=== PATIENT | male | born 1960 | race Caucasian/White ===

== ENCOUNTER 2016-12-14 21:44 | Emergency (ER) | payer BC ==
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
[2016-12-14] MEDS ORDERED: DIPH/PERTUSS(ACELL)/TETANUS VAC/PF 0.5 ML SYR (>=10YO) IM ONE (22:32)
[2016-12-14] MEDS ORDERED: LIDOCAINE 4%/TETRACAINE 0.5%/EPI 0.18% 5 ML TOPICAL SOLN TOP ONE (22:32)
[2016-12-14] MEDS ORDERED: NICOTINE 14 MG/24 HR PATCH.TD24 TD ONE (23:46)
[2016-12-14] MEDS ORDERED: HYDROCODONE/ACETAMINOPHEN 5-325 MG 6 TAB/DSPK PO PRN (23:47)
[2016-12-15 03:02] VITALS: BP 122/74
== END 2016-12-15 02:48 | disposition home or self-care (01) ==
LOC: ER 21:44
PROC: 0HQ0XZZ Repair Scalp Skin, External Approach (ICD-10-PCS; principal; 2016-12-14)
DX: S01.01XA Laceration without foreign body of scalp, initial encounter (principal); F10.929 Alcohol use, unspecified with intoxication, unspecified; F17.200 Nicotine dependence, unspecified, uncomplicated; X58.XXXA Exposure to other specified factors, initial encounter; Z23 Encounter for immunization
CPT/HCPCS: 99284; 90471; 70450; 72125; 90715; 12002; J3490

== ENCOUNTER 2016-12-27 12:53 | Emergency (ER) | payer BC ==
[2016-12-27 13:17] VITALS: BP 132/81
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
== END 2016-12-27 14:10 | disposition home or self-care (01) ==
LOC: ER 12:53
DX: Z48.02 Encounter for removal of sutures (principal); R03.0 Elevated blood-pressure reading, without diagnosis of hypertension

== ENCOUNTER → 2017-04-24 | Outpatient (CLI) | payer BC ==
--- NOTE | 2017-04-24 10:20 | RADIOLOGY REPORT (SQ) ---
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 Images reviewed with lung, soft tissue and bone windows. Reconstructed coronal a nd sagittal MPR images reviewed. All images stored on PACS. CT scan of the abdomen and pelvis performed with intravenous and with oral contrastusing helical scan kathleen technique with dynamic intravenous contrast injection. Images reviewed with lung, soft tissue a nd bone windows. Reconstructed coronal and sagittal MPR images reviewed. Delayed images for evaluat ion of the urinary system also acquired and evaluated. All images stored on PACS. All CT scanners at this facility use dose modulation, iterative reconstruction, and/or weight based d osing when appropriate to reduce radiation dose to as low as reasonably achievable (ALARA). [facility]: Dose Right [facility]: CareDose [facility]: Dose Right [facility]: Teradose 4D [facility]: [employer] RADIATION DOSE: Up-to-date CT equipment and radiation dose reduction techniques were employed. CTDIv ol: 7.9 - 11.6 mGy. DLP: 1483 mGy-cm. . LIMITATIONS: None. FINDINGS: CHEST: LUNGS AND PLEURA: No opacities, nodules, masses. No pneumothorax. No effusions. Few small bulla or blebs at the right and left lung apices. HILAR AND MEDIASTINAL STRUCTURES: No identified masses or abnormal nodes. HEART AND VASCULAR STRUCTURES: No aneurysm or dissection. No central pulmonary emboli. No pericardi al effusion. HARDWARE: None. THYROID AND OTHER SOFT TISSUES: No masses. No adenopathy. BONES: No significant finding. OTHER: No other significant finding. ABDOMEN AND PELVIS: LIVER: The liver has a nodular contour from cirrhosis. In the caudate lobe liver, adjacent to the co nfluence of the middle and right hepatic veins, a hypodense nodule is present with an adjacent surgic al clip measuring 2.2 cm transverse by 1.4 cm AP. This is stable compared to 10/05/2016. There is portal hypertension with distal esophageal varices, similar compared to 10/05/2016. No ascit es. No splenomegaly. SPLEEN: Normal size. No focal lesions. PANCREAS: No masses. No significant calcifications. No adjacent inflammation or peripancreatic fluid collections. Pancreatic duct not dilated. GALLBLADDER: No identified stones by CT criteria. No inflammatory changes to suggest cholecystitis. ADRENAL GLANDS: No significant masses or asymmetry. RIGHT KIDNEY AND URETER: No solid masses. No significant calcification. No hydronephrosis or hydroure ter. LEFT KIDNEY AND URETER: No solid masses. No significant calcification. No hydronephrosis or hydrouret er. AORTA AND VESSELS: No aneurysm. No dissection. Renal arteries, SMA, celiac without stenosis. RETROPERITONEUM: No retroperitoneal adenopathy, hemorrhage or masses. BOWEL AND PERITONEAL CAVITY: No masses or inflammatory changes. No free fluid or peritoneal masses. APPENDIX: Normal. ABDOMINAL WALL: No masses. No hernias. BONES: No significant or acute findings. PELVIS: Normal size prostate with radiotherapy seeds present. No pelvic masses or adenopathy. IMPRESSION: No CT evidence of metastatic disease given history of liver tumor and prostate cancer Stable caudate lobe liver mass, portal hypertension without splenomegaly or ascites. TECHNICAL DOCUMENTATION: JOB ID: [id number] Quality ID # [id number]: Final reports with documentation of one or more dose reduction techniques (e.g., Au tomated exposure control, adjustment of the mA and/or kV according to patient size, use of iterative reconstruction technique) 2010 [employer]- All Rights Reserved
== END ==
LOC: RAD 07:14
PROVIDERS: ATTEND Internal Medicine
DX: C22.1 Intrahepatic bile duct carcinoma (principal)
CPT/HCPCS: 71260; 74177; 82565

== ENCOUNTER 2018-02-16 19:22 | Emergency (ER) | payer BC ==
--- NOTE | 2018-02-16 20:19 | RADIOLOGY REPORT (SQ) ---
EXAM DESCRIPTION: ANKLE RIGHT COMPLETE COMPLETED DATE/TIME: 02/16/2018 7:58 pm REASON FOR STUDY: Ankle pain s/p injury earlier COMPARISON: None. NUMBER OF VIEWS: Three views. TECHNIQUE: AP, lateral, and oblique radiographic images acquired of the right ankle. LIMITATIONS: None. FINDINGS: MINERALIZATION: Normal. BONES: There is a linear lucency at the lateral aspect of the talar dome. Calcific densities are see n at the tip of the lateral malleolus and medial malleolus. No evidence for dislocation. The ankle mortise is maintained. There is calcaneal enthesopathy. JOINTS: No effusion. 5 mm calcification at the posterior ankle joint. SOFT TISSUES: There is mild soft tissue swelling at the ankle. No radiopaque foreign body IMPRESSION: 1. Mild soft tissue swelling at the ankle. Linear lucency at the lateral aspect of the talar dome, probably representing a nondisplaced osteochondral fracture. 2. Calcific densities at the tips of the lateral and medial malleoli, suggestive of avulsion injuries of indeterminate age. Please correlate with point tenderness/clinical history. 3. 5 mm calcification at the posterior ankle joint, may represent an intra-articular loose body. TECHNICAL DOCUMENTATION: JOB ID: [id number] [place]-64 2010 [employer]- All Rights Reserved Reading location - IP/workstation name: [email or web address]
[2018-02-16] MEDS ORDERED: HYDROCODONE/ACETAMINOPHEN 5-325 MG (6 TAB/ER DISP) PO PRN (21:09)
--- NOTE | 2018-02-16 21:09 | ER Document Report ---
ED Extremity Problem, Lower - General Chief Complaint: Ankle Injury Stated Complaint: FOOT INJURY Time Seen by Provider: 02/16/18 20:54 Mode of Arrival: Ambulatory Information source: Patient TRAVEL OUTSIDE OF THE [place] IN LAST 30 DAYS: No - HPI Patient complains to provider of: Pain, Swelling Location: Ankle Occurred: This afternoon Where: Outdoors Onset/Duration: Gradual Quality of pain: Achy, Pressure Severity: Moderate Pain Level: 3 Recent injury: Possibly Notes: Patient is a 57-year-old male presenting to the emergency room complaining of right ankle pain and swelling, patient reports that he stepped off of a curb earlier in the day, he felt a "twinge", in his right ankle, but he returned home and clean his kitchen and did some other housework, only to have increasing pain and swelling in his right ankle, at one point feeling as though the ankle was "giving out", he denies any pain or injury elsewhere - Related Data Allergies/Adverse Reactions: No Known Allergies Allergy (Verified 12/27/16 13:14) Past Medical History - General Information source: Patient - Social History Smoking Status: Unknown if Ever Smoked Family History: Reviewed & Not Pertinent Renal/ Medical History: Denies: Hx Peritoneal Dialysis Review of Systems - Review of Systems Constitutional: No symptoms reported EENT: No symptoms reported Cardiovascular: No symptoms reported Respiratory: No symptoms reported Gastrointestinal: No symptoms reported Genitourinary: No symptoms reported Male Genitourinary: No symptoms reported Musculoskeletal: See HPI Skin: No symptoms reported Hematologic/Lymphatic: No symptoms reported Neurological/Psychological: No symptoms reported -: Yes All other systems reviewed and negative Physical Exam - Vital signs Vitals: Temp Pulse Resp BP Pulse Ox 99.6 F 85 16 127/75 H 94 02/16/18 19:34 02/16/18 19:34 02/16/18 19:34 02/16/18 19:34 02/16/18 19:34 - Notes Notes: - General General appearance: Appears well, Alert In distress: None - HEENT Head: Normocephalic, Atraumatic Eyes: Normal Conjunctiva: Normal Extraocular movements intact: Yes Eyelashes: Normal Pupils: PERRL - Respiratory Respiratory status: No respiratory distress - Cardiovascular Rhythm: Regular - Abdominal Inspection: Normal - Back Back: Normal - Extremities General upper extremity: Normal inspection General lower extremity: Erythema and swelling to the right ankle, tenderness to palpate over the medial malleolus and the lateral malleolus, pain with range of motion testing, distal sensation and motor is intact with 2+ DP pulses - Neurological Neuro grossly intact: Yes Orientation: AAOx4 [place] Coma Scale Eye Opening: Spontaneous Jocy Coma Scale Verbal: Oriented [place] Coma Scale Motor: Obeys Commands [place] Coma Scale Total: 15 - Psychological Associated symptoms: Normal affect, Normal mood - Skin Skin Temperature: Warm Skin Moisture: Dry Skin Color: Normal Course - Re-evaluation Re-evalutation: 02/16/18 21:27 Imaging findings consistent with nondisplaced talus bone fracture, as well as medial and lateral mid avulsion fractures, patient was informed of these findings, placed in a splint and provided with crutches, pain medication and instructions for follow-up with orthopedics, advised to ice and elevate, limit ambulation, return to the emergency room if symptoms worsen, patient acknowledges understanding and agreement with this plan - Vital Signs Vital signs: Temp Pulse Resp BP Pulse Ox 99.6 F 85 16 127/75 H 94 02/16/18 19:34 02/16/18 19:34 02/16/18 19:34 02/16/18 19:34 02/16/18 19:34 - Diagnostic Test Radiology reviewed: Image reviewed, Reports reviewed Procedures - Immobilization Right Posterior Ankle Time completed: 21:27 Pre-Proc Neuro Vasc Exam: Normal Immobilizer type: Posterior ankle Performed by: PCT Post-Proc Neuro Vasc Exam: Normal Alignment checked and good: Yes Discharge - Discharge Clinical Impression: Avulsion fracture of ankle Qualifiers: Encounter type: initial encounter Fracture type: closed Laterality: right Qualified Code(s): S82.891A - Other fracture of right lower leg, initial encounter for closed fracture Fracture, tarsal bone, talus Qualifiers: Encounter type: initial encounter Fracture type: closed Talus location: dome of talus Fracture alignment: nondisplaced Laterality: right Qualified Code(s): S92.144A - Nondisplaced dome fracture of right talus, initial encounter for closed fracture Condition: Stable Disposition: HOME, SELF-CARE Instructions: Use of Crutches ([facility]), Ice & Elevation ([facility]), Oral Narcotic Medication ([facility]), Soft Ankle Splint ([facility]) Additional Instructions: Follow up with your primary care provider and an orthopedic surgeon in one to 2 days. Return to the emergency room immediately if symptoms worsen or any additional concerns. Ice and elevate the affected extremity. Limit weightbearing. Prescriptions: Hydrocodone/Acetaminophen [Hydrocodon-Acetaminophen 5-325] 1 each PO Q6 #10 tablet Forms: Return to Work Referrals: MARQUEZ SCHMIDT MD [Primary Care Provider] - Follow up as needed SERGIO MONK MD [ACTIVE STAFF] - Follow up as needed
[2018-02-16 22:25] VITALS: BP 137/91
== END 2018-02-16 22:00 | disposition home or self-care (01) ==
LOC: ER 19:22
DX: S82.891A Other fracture of right lower leg, initial encounter for closed fracture (principal); X50.9XXA Other and unspecified overexertion or strenuous movements or postures, initial encounter
CPT/HCPCS: 99283

== ENCOUNTER → 2018-05-08 | Outpatient (CLI) | payer BC ==
--- NOTE | 2018-05-08 15:53 | RADIOLOGY REPORT (SQ) ---
EXAM DESCRIPTION: CT CHEST WITH COMPLETED DATE/TIME: 05/08/2018 3:38 pm REASON FOR STUDY: C22.0 LIVER CELL CARCINOMA C22.0 LIVER CELL CARCINOMA COMPARISON: 04/24/2017 TECHNIQUE: CT scan of the chest performed using helical scanning technique with dynamic intravenous contrast injection. Images reviewed with lung, soft tissue and bone windows. Reconstructed coronal and sagittal MPR and MIP images reviewed. All images stored on PACS. All CT scanners at this facility use dose modulation, iterative reconstruction, and/or weight based d osing when appropriate to reduce radiation dose to as low as reasonably achievable (ALARA). [facility]: Dose Right [facility]: CareDose [facility]: Dose Right [facility]: Teradose 4D [facility]: [employer] CONTRAST TYPE AND DOSE: See separate report of the same date. RENAL FUNCTION: See separate report of the same date. RADIATION DOSE: . LIMITATIONS: None. FINDINGS: LUNGS AND PLEURA: No opacities, nodules, masses. No pneumothorax. No effusions. HILAR AND MEDIASTINAL STRUCTURES: No identified masses or abnormal nodes. HEART AND VASCULAR STRUCTURES: No aneurysm or dissection. No central pulmonary emboli. No pericardi al effusion. HARDWARE: None in the chest. UPPER ABDOMEN: See separate report of the CT of the abdomen. THYROID AND OTHER SOFT TISSUES: No masses. No adenopathy. BONES: No significant finding. OTHER: No other significant finding. IMPRESSION: No evidence of metastatic disease. TECHNICAL DOCUMENTATION: JOB ID: [id number] Quality ID # [id number]: Final reports with documentation of one or more dose reduction techniques (e.g., Au tomated exposure control, adjustment of the mA and/or kV according to patient size, use of iterative reconstruction technique) 2010 [employer]- All Rights Reserved Reading location - IP/workstation name: [email or web address]
--- NOTE | 2018-05-08 16:07 | RADIOLOGY REPORT (SQ) ---
EXAM DESCRIPTION: CT ABD/PELVIS WITH IV ORAL COMPLETED DATE/TIME: 05/08/2018 3:38 pm REASON FOR STUDY: C22.0 LIVER CELL CARCINOMA C22.0 LIVER CELL CARCINOMA COMPARISON: 04/24/2017 TECHNIQUE: CT scan of the abdomen and pelvis performed using helical scanning technique with dynamic intravenous contrast injection. No oral contrast. Images reviewed with lung, soft tissue, and bone windows. Reconstructed coronal and sagittal MPR images reviewed. Delayed images for evaluation of the urinary system also acquired. All images stored on PACS. All CT scanners at this facility use dose modulation, iterative reconstruction, and/or weight based d osing when appropriate to reduce radiation dose to as low as reasonably achievable (ALARA). [facility]: Dose Right [facility]: CareDose [facility]: Dose Right [facility]: Teradose 4D [facility]: [employer] CONTRAST TYPE AND DOSE: contrast/concentration: Isovue 350.00 mg/ml; Total Contrast Delivered: 87.0 ml; Total Saline Delivered: 72.0 ml RENAL FUNCTION: Creatinine 0.6 RADIATION DOSE: CT Rad equipment meets quality standard of care and radiation dose reduction techniq ues were employed. CTDIvol: 9.3 - 13.6 mGy. DLP: 1767 mGy-cm.. LIMITATIONS: None. FINDINGS: LOWER CHEST: See separate report of the CT of the chest. LIVER: Sub capsular nodularity. Stable 1.5 cm lesion near the gallbladder fossa. SPLEEN: Normal size. No focal lesions. PANCREAS: No masses. No significant calcifications. No adjacent inflammation or peripancreatic fluid collections. Pancreatic duct not dilated. GALLBLADDER: No identified stones by CT criteria. No inflammatory changes to suggest cholecystitis. ADRENAL GLANDS: No significant masses or asymmetry. RIGHT KIDNEY AND URETER: No solid masses. No significant calcifications. No hydronephrosis or hyd roureter. LEFT KIDNEY AND URETER: No solid masses. No significant calcifications. No hydronephrosis or hydr oureter. AORTA AND VESSELS: No aneurysm. Distal esophageal varices. RETROPERITONEUM: Adenopathy, the largest 3.0 x 2.1 cm. BOWEL AND PERITONEAL CAVITY: No masses or inflammatory changes. No free fluid or peritoneal masses. APPENDIX: Normal. PELVIS: Enlarged left pelvic wall nodes, the largest conglomerate 1.5 x 3 cm. Radiation seed markers in the pelvis. ABDOMINAL WALL: No masses. No hernias. BONES: No acute findings. OTHER: No other significant finding. IMPRESSION: New retroperitoneal and left pelvic adenopathy concerning for metastatic disease or lymp coco. TECHNICAL DOCUMENTATION: JOB ID: [id number] Quality ID # [id number]: Final reports with documentation of one or more dose reduction techniques (e.g., Au tomated exposure control, adjustment of the mA and/or kV according to patient size, use of iterative reconstruction technique) 2010 [employer]- All Rights Reserved Reading location - IP/workstation name: [email or web address] [id number]
== END ==
LOC: RAD 15:28
PROVIDERS: ATTEND Internal Medicine
DX: C22.0 Liver cell carcinoma (principal); R59.9 Enlarged lymph nodes, unspecified
CPT/HCPCS: 71260; 74177; 82565

== ENCOUNTER → 2018-05-25 | Outpatient (CLI) | payer BC ==
--- NOTE | 2018-05-26 08:27 | RADIOLOGY REPORT (SQ) ---
EXAM DESCRIPTION: PET CT SKULL/THIGH COMPLETED DATE/TIME: 05/25/2018 8:08 pm REASON FOR STUDY: LIVER CELL CARCINOMA C22.0 LIVER CELL CARCINOMA COMPARISON: CT scans dated 05/08/2018, 04/24/2017, and 10/05/2016. RADIONUCLIDE AND DOSE: 10 mCi F18 FDG The route of agent administration: Intravenous FASTING BLOOD SUGAR: 84 mg/dl CONTRAST TYPE AND DOSE: No CT contrast given. TECHNIQUE: Blood glucose level was verified. Above dose of FDG was injected intravenously. 2-D seg mented attenuation correction images were obtained from the base of the skull to the midthighs. Nonc ontrast CT images were obtained for attenuation correction and fusion with emission images. CT image s were performed without oral or intravenous contrast and are not sensitive for parenchymal lesions. A series of overlapping emission PET images were obtained. Images reviewed and manipulated at [facility] work station by the radiologist. Images stored on PACS. LIMITATIONS: None. FINDINGS: HEAD AND NECK: No areas of abnormal metabolic activity in the soft tissues of the head and neck. CHEST: No areas of abnormal metabolic activity in the chest. ABDOMEN AND PELVIS: There are several enlarged retroperitoneal lymph nodes with increased activity as follows: Right retrocrural lymph node (image 128) measuring 1.1 x 2.6 cm. Mean SUV 2.96. Retrocaval lymph node (image 155) measuring 1.8 cm. Mean SUV 10.67. Left periaortic lymph node (image 158) measuring 1.8 cm. Mean SUV 3.84. Retrocaval lymph node (image 161) measuring 0.8 x 2.1 cm. Mean SUV 6.79. Lymph node on the left side of the aortic bifurcation (image 176) measuring 1.9 cm. Mean SUV 5.53. Lymph node near the left common iliac artery (image 184) measuring 1.6 x 2.0 cm. Mean SUV 9.22. Lymph node posterior to the left common iliac artery (image 193) measuring 1.8 cm. Mean SUV 7.0. Lymph node along the left iliac chain (image 199) measuring 1.9 cm. Mean SUV 6.67. Lymph node along the left pelvic sidewall (image 211) measuring 1.4 cm. Mean SUV 7.58. Small nodule posterior to the prostate, possibly in the seminal vesicles, measuring 9 mm (image 227). Mean SUV 6.41. Expected physiologic activity is present in the genitourinary system and bowel. PROXIMAL LOWER EXTREMITIES: No areas of abnormal metabolic activity in the soft tissues of the lower extremities. BONES: Activity on the right side of the C4 vertebral body adjacent to the vertebral artery foramen w ith mean SUV 7.63. Activity in the right iliac bone adjacent to the sacroiliac joint with mean SUV [address] FINDINGS: No additional significant findings on the noncontrast CT images. OTHER: No other significant findings. Background blood pool activity mean SUV 1.27. Background live r activity mean SUV 1.87. . IMPRESSION: 1. EXTENSIVE ADENOPATHY IN THE ABDOMEN AND PELVIS CONSISTENT WITH METASTASES DETAILED ABOVE. 2. SMALL NODULE POSTERIOR TO THE PROSTATE, POSSIBLY IN THE SEMINAL VESICLE. FOCAL INCREASED ACTIVITY . THIS COULD BE DUE TO MALIGNANCY VERSUS INFLAMMATION. 3. ABNORMAL ACTIVITY IN THE CERVICAL SPINE AND RIGHT ILIAC BONE CONCERNING FOR METASTASES. TECHNICAL DOCUMENTATION: JOB ID: [id number] [employer]- All Rights Reserved Reading location - IP/workstation name: [facility]
== END ==
LOC: RAD 15:09
PROVIDERS: ATTEND Internal Medicine Hematology & Oncology
DX: C22.0 Liver cell carcinoma (principal)
CPT/HCPCS: 78815; A9552

== ENCOUNTER 2018-06-06 08:51 | Day surgery (SDC) | payer BC ==
[2018-06-06 09:41] LABS: HEMATOCRIT 43.6 % (37.9-51.0); HEMOGLOBIN 15.2 g/dL (13.5-17.0); MEAN CORPUSCULAR HEMOGLOBIN 33.5 pg (27.0-33.4); MEAN CORPUSCULAR HGB CONC 34.9 g/dL (32.0-36.0); MEAN CORPUSCULAR VOLUME 96 fl (80-97); PLATELET COUNT 125 10^3/uL (150-450); RED BLOOD COUNT 4.54 10^6/uL (4.35-5.55); WHITE BLOOD COUNT 3.6 10^3/uL (4.0-10.5)
[2018-06-06 10:00] LABS: BLOOD UREA NITROGEN 11 mg/dL (7-20)
[2018-06-06 10:02] LABS: INTERNATIONAL RATION (INR) 0.92; PROTHROMBIN TIME 12.8 SEC (11.4-15.4)
[2018-06-06 10:03] LABS: PARTIAL THROMBOPLASTIN TIME 29.6 SEC (23.5-35.8)
[2018-06-06] MEDS ORDERED: MIDAZOLAM 2 MG/2 ML INJ ONE (10:56)
[2018-06-06] MEDS ORDERED: FENTANYL CITRATE INJ/PF 100 MCG/2 ML AMPUL ONE (10:57)
[2018-06-06] MEDS ORDERED: LIDOCAINE 1% INJ-PF (10 MG/ML) 30 ML SDV ONE (10:57)
--- NOTE | 2018-06-06 13:48 | RADIOLOGY REPORT (SQ) ---
EXAM DESCRIPTION: CT BIOPSY ABD/RETROPERIT MASS; CT NEEDLE PLACEMENT COMPLETED DATE/TIME: 06/06/2018 12:29 pm REASON FOR STUDY: MALIGNANT NEOPLASM OF PROSTATE, LIVER CELL CARCINOMA C61 MALIGNANT NEOPLASM OF [place] C22.0 LIVER CELL CARCINOMA COMPARISON: CT chest abdomen pelvis 05/08/2018 PET-CT 05/25/2018 TECHNIQUE: CT guided biopsy of the left retroperitoneal lymph node performed with conscious sedation . CT Fluoroscopy Time: 16.[address] scanners at this facility use dose modulation, iterative reconstruction, and/or weight based d osing when appropriate to reduce radiation dose to as low as reasonably achievable (ALARA). [facility]: Dose Right [facility]: CareDose [facility]: Dose Right [facility]: Teradose 4D [facility]: [employer] RADIATION DOSE: mGy. FINDINGS: After obtaining informed consent and explaining the risks and benefits of conscious sedati on,the patient agreed to the procedure. Prior to the procedure, a time out was performed to verify th e patient's identity and planned procedure. IV sedation was administered and physician direction by the registered nurse using 2 milligrams of Ve rsed and 150 micrograms of fentanyl, for conscious sedation. Physiologic monitoring was provided befo re, during, and after sedation. The total sedation time was 1 hour. Documentation face to face time, the performing proceduralist, spent monitoring the patient: [address] scanning was performed to localize the percutaneous site for the biopsy approach. After sterile skin prep and local lidocaine for skin and deep tissue anesthesia, a coaxial 18 gauge b iopsy needle was used to obtain multiple cores of tissue. The biopsy tissue was submitted to the lab in formalin. There were no immediate complications. Pathology is pending at the time of dictation. IMPRESSION: CT GUIDED BIOPSY OF THE LEFT RETROPERITONEAL PARA-AORTIC LYMPH NODE PERFORMED WITHOUT IM MEDIATE COMPLICATION. PATHOLOGY PENDING. COMMENT: Quality ID 145: Final reports for procedures using fluoroscopy that document radiation exp osure indices, or exposure time and number of fluorographic images (if radiation exposure indices are not available) Patient medication list reviewed: Yes- Quality ID# [id number]:Eligible professional attests to documenting i n the medical record they obtained, updated, or reviewed the patient's current medications.. TECHNICAL DOCUMENTATION: JOB ID: [id number] Quality ID# 436: Final reports with documentation of one or more dose reduction techniques (e.g., Aut omated exposure control, adjustment of the mA and/or kV according to patient size, use of iterative r econstruction technique) 2010 [employer]- All Rights Reserved Reading location - IP/workstation name: [email or web address]
--- NOTE | 2018-06-06 13:48 | RADIOLOGY REPORT (SQ) ---
EXAM DESCRIPTION: CT BIOPSY ABD/RETROPERIT MASS; CT NEEDLE PLACEMENT COMPLETED DATE/TIME: 06/06/2018 12:29 pm REASON FOR STUDY: MALIGNANT NEOPLASM OF PROSTATE, LIVER CELL CARCINOMA C61 MALIGNANT NEOPLASM OF [place] C22.0 LIVER CELL CARCINOMA COMPARISON: CT chest abdomen pelvis 05/08/2018 PET-CT 05/25/2018 TECHNIQUE: CT guided biopsy of the left retroperitoneal lymph node performed with conscious sedation . CT Fluoroscopy Time: 16.[address] scanners at this facility use dose modulation, iterative reconstruction, and/or weight based d osing when appropriate to reduce radiation dose to as low as reasonably achievable (ALARA). [facility]: Dose Right [facility]: CareDose [facility]: Dose Right [facility]: Teradose 4D [facility]: [employer] RADIATION DOSE: mGy. FINDINGS: After obtaining informed consent and explaining the risks and benefits of conscious sedati on,the patient agreed to the procedure. Prior to the procedure, a time out was performed to verify th e patient's identity and planned procedure. IV sedation was administered and physician direction by the registered nurse using 2 milligrams of Ve rsed and 150 micrograms of fentanyl, for conscious sedation. Physiologic monitoring was provided befo re, during, and after sedation. The total sedation time was 1 hour. Documentation face to face time, the performing proceduralist, spent monitoring the patient: [address] scanning was performed to localize the percutaneous site for the biopsy approach. After sterile skin prep and local lidocaine for skin and deep tissue anesthesia, a coaxial 18 gauge b iopsy needle was used to obtain multiple cores of tissue. The biopsy tissue was submitted to the lab in formalin. There were no immediate complications. Pathology is pending at the time of dictation. IMPRESSION: CT GUIDED BIOPSY OF THE LEFT RETROPERITONEAL PARA-AORTIC LYMPH NODE PERFORMED WITHOUT IM MEDIATE COMPLICATION. PATHOLOGY PENDING. COMMENT: Quality ID 145: Final reports for procedures using fluoroscopy that document radiation exp osure indices, or exposure time and number of fluorographic images (if radiation exposure indices are not available) Patient medication list reviewed: Yes- Quality ID# [id number]:Eligible professional attests to documenting i n the medical record they obtained, updated, or reviewed the patient's current medications.. TECHNICAL DOCUMENTATION: JOB ID: [id number] Quality ID# 436: Final reports with documentation of one or more dose reduction techniques (e.g., Aut omated exposure control, adjustment of the mA and/or kV according to patient size, use of iterative r econstruction technique) 2010 [email or web address]- All Rights Reserved Reading location - IP/workstation name: [facility]-[email or web address]
[2018-06-06 16:33] VITALS: BP 135/79
== END 2018-06-06 14:30 | disposition home or self-care (01) ==
LOC: RAD 08:51 → EDSTATUS 11:00 → RAD 14:30
PROVIDERS: ATTEND Internal Medicine
DX: C77.2 Secondary and unspecified malignant neoplasm of intra-abdominal lymph nodes (principal); C61 Malignant neoplasm of prostate; C22.0 Liver cell carcinoma
CPT/HCPCS: 36415; 84520; 82565; 85027; 85610; 85730; 88342 ×2; 88341 ×2; 88305 ×2; 88313 ×2; 77012; 49180; J2250; J3010; J3490

== ENCOUNTER 2018-11-10 13:23 | Inpatient (IN) | payer BC, MEDICAID ==
[2018-11-10] MEDS ORDERED: ASPIRIN 81 MG TABLET, CHEWABLE PO ONE (13:29)
[2018-11-10] MEDS ORDERED: KETOROLAC TROMETHAMINE INJ/PF 30 MG/1 ML SDV IV ONE (13:49)
[2018-11-10 14:15] LABS: ABSOLUTE EOSINOPHILS # (AUTO) 0.1 10^3/uL (0.0-0.6); ABSOLUTE LYMPHOCYTES (AUTO) 1.3 10^3/uL (0.5-4.7); ABSOLUTE MONOCYTES (AUTO) 0.3 10^3/uL (0.1-1.4); ABSOLUTE NEUT (AUTO) 2.5 10^3/uL (1.7-8.2); BASOPHILS % (AUTO) 0.5 % (0-2); EOSINOPHILS % (AUTO) 1.5 % (0-6); HEMATOCRIT 45.3 % (37.9-51.0); HEMOGLOBIN 16.1 g/dL (13.5-17.0); LYMPHOCYTES % (AUTO) 30.9 % (13-45); MEAN CORPUSCULAR HEMOGLOBIN 33.8 pg (27.0-33.4); MEAN CORPUSCULAR HGB CONC 35.5 g/dL (32.0-36.0); MEAN CORPUSCULAR VOLUME 95 fl (80-97); PLATELET COUNT 153 10^3/uL (150-450); RED BLOOD COUNT 4.76 10^6/uL (4.35-5.55); RED CELL DISTRIBUTION WIDTH 13.5 % (11.5-14.0); SEGMENTED NEUTROPHILS % (AUTO) 59.1 % (42-78); TOTAL CELLS COUNTED % (AUTO) 100 %; WHITE BLOOD COUNT 4.2 10^3/uL (4.0-10.5)
--- NOTE | 2018-11-10 14:30 | RADIOLOGY REPORT (SQ) ---
EXAM DESCRIPTION: CHEST SINGLE VIEW COMPLETED DATE/TIME: 11/10/2018 1:56 pm REASON FOR STUDY: bed 1 cp COMPARISON: None. EXAM PARAMETERS: NUMBER OF VIEWS: One view. TECHNIQUE: Single frontal radiographic view of the chest acquired. RADIATION DOSE: NA LIMITATIONS: None. FINDINGS: LUNGS AND PLEURA: No opacities, masses or pneumothorax. No pleural effusion. MEDIASTINUM AND HILAR STRUCTURES: No masses. Contour normal. HEART AND VASCULAR STRUCTURES: Heart normal in size. Normal vasculature. BONES: No acute findings. HARDWARE: None in the chest. OTHER: No other significant finding. IMPRESSION: No acute abnormality of the lungs in AP projection. No focal airspace opacity. TECHNICAL DOCUMENTATION: JOB ID: [id number] [employer]- All Rights Reserved Reading location - IP/workstation name: [email or web address]
[2018-11-10 14:31] LABS: ALANINE AMINOTRANSFERASE 51 U/L (21-72); ALBUMIN 4.8 g/dL (3.5-5.0); ALKALINE PHOSPHATASE 98 U/L (38-126); ANION GAP 9 (5-19); ASPARTATE AMINO TRANSFERASE 64 U/L (17-59); BILIRUBIN,DIRECT 0.4 mg/dL (0.0-0.4); BILIRUBIN,TOTAL 0.7 mg/dL (0.2-1.3); BLOOD UREA NITROGEN 16 mg/dL (7-20); CALCIUM 10.2 mg/dL (8.4-10.2); CARBON DIOXIDE 25 mmol/L (22-30); CHLORIDE 104 mmol/L (98-107); CREATINE KINASE 70 U/L (55-170); GLUCOSE 110 mg/dL (75-110); POTASSIUM 4.1 mmol/L (3.6-5.0); SODIUM 138.1 mmol/L (137-145)
[2018-11-10 14:50] LABS: CREATINE KINASE MB 0.81 ng/mL (<4.55); TROPONIN I 0.025 ng/mL
--- NOTE | 2018-11-10 17:43 | ER Document Report ---
Entered by MELL MALCOLM SCRIBE 11/10/18 1401 Acting as scribe for:ELLY ROB MD ED General - General Chief Complaint: Chest Pain Stated Complaint: CHEST PAIN Time Seen by Provider: 11/10/18 13:33 Primary Care Provider: MARQUEZ SCHMIDT MD [ACTIVE STAFF] - Follow up as needed Mode of Arrival: Ambulatory Information source: Patient Notes: Patient is a 58 year old male with prostate cancer with mets to the lymphondes and retroperitoneal space presents to the emergency department complaining of chest pain onset 3 days ago. Patient states the pain significantly worsened this morning. He states the pain is located on his right side which radiates to his sternum and right shoulder. He describes it as an waxing and waning pressure. He states he received nitroglycerin from EMS that "took away and subsided" his pain. TRAVEL OUTSIDE OF THE [place] IN LAST 30 DAYS: No - Related Data Allergies/Adverse Reactions: No Known Allergies Allergy (Verified 06/06/18 09:33) Past Medical History - General Information source: Patient - Social History Smoking Status: Current Every Day Smoker Cigarette use (# per day): Yes - 15 cigs a day Frequency of alcohol use: Occasional Drug Abuse: None Family History: Reviewed & Not Pertinent Patient has suicidal ideation: No Patient has homicidal ideation: No Malignancy Medical History: Reports Hx Prostate Cancer - with mets to the lymphnodes and retroperitoneal space Musculoskeletal Medical History: Reports Hx Arthritis - HAILEE HANDS Past Surgical History: Reports: Other - [facility]. - Immunizations Hx Diphtheria, Pertussis, Tetanus Vaccination: Yes Review of Systems - Review of Systems Constitutional: No symptoms reported EENT: No symptoms reported Cardiovascular: See HPI, Chest pain Respiratory: No symptoms reported Gastrointestinal: No symptoms reported Genitourinary: No symptoms reported Male Genitourinary: No symptoms reported Musculoskeletal: No symptoms reported Skin: No symptoms reported Hematologic/Lymphatic: No symptoms reported Neurological/Psychological: No symptoms reported -: Yes All other systems reviewed and negative Physical Exam - Vital signs Vitals: Pulse Ox 98 11/10/18 13:29 - Notes Notes: GENERAL: Alert, interacts well. No acute distress. HEAD: Normocephalic, atraumatic. EYES: Pupils equal, round, and reactive to light. Extraocular movements intact. ENT: Oral mucosa moist, tongue midline. NECK: Full range of motion. Supple. Trachea midline. LUNGS: Clear to auscultation bilaterally, no wheezes, rales, or rhonchi. No respiratory distress. Left reproducible anterior chest wall tenderness to palpation. Patient grunts and complains of chest pain when sitting up. HEART: Regular rate and rhythm. No murmurs, gallops, or rubs. ABDOMEN: Soft, non-tender. Non-distended. Bowel sounds present in all 4 quadrants. No guarding, rigidity, or rebound. EXTREMITIES: Moves all 4 extremities spontaneously. No peripheral edema. No cyanosis. NEUROLOGICAL: Alert and oriented x3. Normal speech. PSYCH: Normal affect, normal mood. SKIN: Warm, dry, normal turgor. No rashes or lesions noted. Course - Re-evaluation Re-evalutation: 11/10/18 19:43 1 patient's elevated troponin and negative CTAs scan were discussed with Dr. Covington. He requests a talk with Dr. Juarez to decide whether or not to admit the patient. I discussed patient with Dr. Juarez and he believes the patient should be kept here and admitted by Dr. Covington to the intensive care unit. I discussed this with Dr. Covington and he ultimately decided to place the patient on Lovenox and nitroglycerin paste and admit to the intensive care unit. - Vital Signs Vital signs: Temp Pulse Resp BP Pulse Ox 98.2 F 81 21 H 144/97 H 99 11/10/18 13:37 11/10/18 13:37 11/10/18 17:01 11/10/18 17:01 11/10/18 17:01 - Laboratory Result Diagrams: 11/10/18 13:05 11/10/18 13:05 Laboratory results interpreted by me: 11/10/18 11/10/18 13:05 13:05 [facility] 33.8 H AST 64 H Total Protein 9.0 H - Diagnostic Test Radiology reviewed: Image reviewed, Reports reviewed - Chest x-ray does not show an acute abnormality. CTA chest does not show any abnormalities. - EKG Interpretation by Me EKG shows normal: Sinus rhythm, [place], Intervals, QRS Complexes. abnormal: ST-T Waves - Borderline repolarization abnormality in the inferolateral leads Rate: Normal - 84 Rhythm: NSR - Consults Dr. Covington Time consulted: 17:35 Consulted provider: other - Dr. Covington was in the department and saw the patient. He requests a CTA chest to exclude PE and metastatic disease. He feels the patient can be safely discharged home if his repeat troponin is not any higher than the initial troponin. Critical Care Note - Critical Care Note Total time excluding time spent on procedures (mins): 45 Discharge - Discharge Clinical Impression: Non-ST elevated myocardial infarction (non-STEMI), Prostate cancer metastatic to intraabdominal lymph node Chest pain Qualifiers: Chest pain type: unspecified Qualified Code(s): R07.9 - Chest pain, unspecified Condition: Good Disposition: ADMITTED INPATIENT Admitting Provider: [facility] Unit Admitted: ICU Referrals: MARQUEZ SCHMIDT MD [ACTIVE STAFF] - Follow up as needed Scribe Attestation: 11/10/18 14:09 I personally performed the services described in the documentation, reviewed and edited the documentation which was dictated to the scribe in my presence, and it accurately records my words and actions. I personally performed the services described in the documentation, reviewed and edited the documentation which was dictated to the scribe in my presence, and it accurately records my words and actions.
--- NOTE | 2018-11-10 19:25 | RADIOLOGY REPORT (SQ) ---
EXAM DESCRIPTION: CTA CHEST COMPLETED DATE/TIME: 11/10/2018 6:59 pm REASON FOR STUDY: Chest pain, metastatic prostate cancer COMPARISON: 05/08/2018 TECHNIQUE: CT scan of the chest performed using helical scanning technique with dynamic intravenous contrast injection. Images reviewed with lung, soft tissue and bone windows. Reconstructed coronal and sagittal MPR images reviewed. Additional 3 dimensional post-processing performed to develop Maximal Intensity Projection images (CT P). All images stored on PACS. All CT scanners at this facility use dose modulation, iterative reconstruction, and/or weight based d osing when appropriate to reduce radiation dose to as low as reasonably achievable (ALARA). [facility]: Dose Right [facility]: CareDose [facility]: Dose Right [facility]: Teradose 4D [facility]: [employer] CONTRAST TYPE AND DOSE: contrast/concentration: Isovue 350.00 mg/ml; Total Contrast Delivered: 85.0 ml; Total Saline Delivered: 91.0 ml Contrast bolus adequate for pulmonary arteries and aorta. RENAL FUNCTION: BUN 16 creatinine 0.68 RADIATION DOSE: CT Rad equipment meets quality standard of care and radiation dose reduction technKymab ues were employed. CTDIvol: 3.3 - 30.0 mGy. DLP: 1178 mGy-cm. . LIMITATIONS: Sub optimal opacification of the pulmonary arteries. FINDINGS: LUNGS AND PLEURA: No masses, infiltrates, or pneumothorax. No pleural effusions or pleura l calcifications. AORTA AND GREAT VESSELS: No aneurysm. Contrast bolus not optimized for the aorta. HEART: No pericardial effusion. Moderate to marked coronary artery calcifications. PULMONARY ARTERIES: No obvious emboli seen in the main pulmonary arteries or the segmental branches. HILAR AND MEDIASTINAL STRUCTURES: There are some small nonspecific mediastinal nodes. No true adenop athy. HARDWARE: None in the chest. UPPER ABDOMEN: No significant findings. Limited exam. THYROID AND OTHER SOFT TISSUES: No masses. No adenopathy. BONES: No acute or significant finding. 3D MIPS: Confirm above findings. OTHER: No other significant finding. IMPRESSION: Slightly limited study. No obvious pulmonary emboli. COMMENT: Quality ID # [id number]: Final reports with documentation of one or more dose reduction techniques (e.g., Automated exposure control, adjustment of the mA and/or kV according to patient size, use of iterative reconstruction technique) TECHNICAL DOCUMENTATION: JOB ID: [id number]- All Rights Reserved Reading location - IP/workstation name: [email or web address]
[2018-11-10] MEDS ORDERED: NORMAL SALINE 1000 ML 1,000 ML IV ONE (19:32)
[2018-11-10] MEDS ORDERED: NITROGLYCERIN/D5W 50 MG/250 ML RTUINJ IV PRN (19:38)
[2018-11-10] MEDS ORDERED: HEPARIN SOD (PORCINE) 1,000 UNIT/ML 10 ML VIAL IV ONE (19:38)
[2018-11-10] MEDS ORDERED: HEPARIN SODIUM,PORCINE/D5W 250 ML IV PRN (19:38)
[2018-11-10] MEDS ORDERED: NITROGLYCERIN 2% OINTMENT 1 GM PACKET TP ONE (19:41)
[2018-11-10] MEDS ORDERED: ENOXAPARIN SODIUM INJ 120 MG/0.8 ML DISP.SYRIN SUBCUT ONE (19:41)
[2018-11-10] MEDS ORDERED: ACETAMINOPHEN 325 MG TABLET PO PRN (19:43)
[2018-11-10] MEDS ORDERED: NORMAL SALINE 1000 ML 1,000 ML IV PRN (19:43)
--- NOTE | 2018-11-10 20:03 | EKG REPORT ---
SEVERITY:- BORDERLINE ECG - SINUS RHYTHM BORDERLINE REPOL ABNORMALITY, INF-LAT LEADS : Confirmed by: Tamika Juarez MD 10-Nov-2018 20:02:12
[2018-11-10 20:06] LABS: INTERNATIONAL RATION (INR) 0.87; PROTHROMBIN TIME 12.3 SEC (11.4-15.4)
--- NOTE | 2018-11-10 20:15 | PDOC H&P ---
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 Patient complains of: chest pain History of Present Illness: CHELSIE GILES is a 58 year old male this 58 y/o male with h/o hypertension/prostatecancer with met curr see dr betts and recnt came to my practice and c/o chest pain on and off and refer to out pt cardiology but not seen yet came to er with c/o chest pain started last 3 days and more worse this am and on lt side and go back side in er pt troponin is 0.025 and second one is 0.[address] mi range in er when i saw pt denied nay chest pain/no sob pt cta is neg for any pe pt had h/o prostate cancer with met and see Dr betts d/w [facility] de la cruz [facility] cardiac cath pt admit in icu and start Lovenox/nitro as per d/w wit Dr de la cruz Past Medical History Cardiac Medical History: Reports: Hyperlipidema, Hypertension Denies: Coronary Artery Disease, Myocardial Infarction Pulmonary Medical History: Denies: Asthma, Bronchitis, Chronic Obstructive Pulmonary Disease (COPD), Pneumonia Neurological Medical History: Denies: Seizures Malignancy Medical History: Reports: Liver Cancer, Other Malignancy History Note: prostate cancer Musculoskeltal Medical History: Reports: Arthritis - AHILEE HANDS Hematology: Denies: Anemia Past Surgical History Past Surgical History: Reports: Other - ACF. Social History Smoking Status: Current Every Day Smoker Frequency of Alcohol Use: None Hx Recreational Drug Use: No Hx Prescription Drug Abuse: No Family History Family History: Reviewed & Not Pertinent Parental Family History Reviewed: Yes Children Family History Reviewed: Yes Sibling(s) Family History Reviewed.: Yes Medication/Allergy Home Medications: No Home Medications 06/06/18 Allergies/Adverse Reactions: No Known Allergies Allergy (Verified 06/06/18 09:33) Review of Systems Constitutional: ABSENT: chills, fever(s), headache(s), weight gain, weight loss Eyes: ABSENT: visual disturbances Ears: ABSENT: hearing changes Cardiovascular: PRESENT: chest pain. ABSENT: dyspnea on exertion, edema, orthropnea, palpitations Respiratory: ABSENT: cough, hemoptysis Gastrointestinal: ABSENT: abdominal pain, constipation, diarrhea, hematemesis, hematochezia, nausea, vomiting Genitourinary: ABSENT: dysuria, hematuria Musculoskeletal: ABSENT: joint swelling Integumentary: ABSENT: rash, wounds Neurological: ABSENT: abnormal gait, abnormal speech, confusion, dizziness, focal weakness, syncope Psychiatric: ABSENT: anxiety, depression, homidical ideation, suicidal ideation Endocrine: ABSENT: cold intolerance, heat intolerance, menstrual abnormalities, polydipsia, polyuria Hematologic/Lymphatic: ABSENT: easy bleeding, easy bruising, lymphadenopathy Physical Exam Vital Signs: Temp Pulse Resp BP Pulse Ox 98.2 F 81 21 H 144/97 H 99 11/10/18 13:37 11/10/18 13:37 11/10/18 17:01 11/10/18 17:01 11/10/18 17:01 Intake & Output 11/09/18 11/10/18 11/11/18 06:59 06:59 06:59 Weight 104.326 kg General appearance: PRESENT: no acute distress, well-developed, well-nourished Head exam: PRESENT: atraumatic, normocephalic Eye exam: PRESENT: conjunctiva pink, EOMI, PERRLA. ABSENT: scleral icterus Ear exam: PRESENT: normal external ear exam Mouth exam: PRESENT: moist, tongue midline Neck exam: PRESENT: full ROM. ABSENT: carotid bruit, JVD, lymphadenopathy, thyromegaly Respiratory exam: PRESENT: clear to auscultation hailee Cardiovascular exam: PRESENT: RRR. ABSENT: diastolic murmur, rubs, systolic murmur Vascular exam: PRESENT: normal capillary refill GI/Abdominal exam: PRESENT: normal bowel sounds, soft. ABSENT: distended, guarding, mass, organolmegaly, rebound, tenderness Rectal exam: PRESENT: deferred Extremities exam: PRESENT: pedal edema Musculoskeletal exam: PRESENT: ambulatory Neurological exam: PRESENT: alert, awake, oriented to person, oriented to place, oriented to time, oriented to situation, CN II-XII grossly intact. ABSENT: motor sensory deficit Psychiatric exam: PRESENT: appropriate affect, normal mood. ABSENT: homicidal ideation, suicidal ideation Skin exam: PRESENT: dry, intact, warm. ABSENT: cyanosis, rash Results Laboratory Results: 11/10/18 13:05 11/10/18 13:05 11/10/18 11/10/18 13:05 13:05 WBC 4.2 RBC 4.76 Hgb 16.1 Hct 45.3 MCV 95 MCH 33.8 H MCHC 35.5 RDW 13.5 Plt Count 153 Seg Neutrophils % 59.1 Lymphocytes % 30.9 Monocytes % 8.0 Eosinophils % 1.5 Basophils % 0.5 Absolute Neutrophils 2.5 Absolute Lymphocytes 1.3 Absolute Monocytes 0.3 Absolute Eosinophils 0.1 Absolute Basophils 0.0 Sodium 138.1 Potassium 4.1 Chloride 104 Carbon Dioxide 25 Anion Gap 9 BUN 16 Creatinine 0.68 Est GFR ( Amer) > 60 Est GFR (Non-Af Amer) > 60 Glucose 110 Calcium 10.2 Total Bilirubin 0.7 AST 64 H ALT 51 Alkaline Phosphatase 98 Total Protein 9.0 H Albumin 4.8 11/10/18 11/10/18 11/10/18 13:05 13:05 17:20 Creatine Kinase 70 CK-MB (CK-2) 0.81 Troponin I 0.025 0.597 Impressions: Chest X-Ray 11/10/18 13:29 IMPRESSION: No acute abnormality of the lungs in AP projection. No focal airspace opacity. Chest/Abdomen CTA 11/10/18 17:35 IMPRESSION: Slightly limited study. No obvious pulmonary emboli. Assessment & Plan - Diagnosis (1) Chest pain Qualifiers: Chest pain type: unspecified Qualified Code(s): R07.9 - Chest pain, unspecified Is this a current diagnosis for this admission?: Yes Plan: admit in icu (2) Non-ST elevated myocardial infarction (non-STEMI) Is this a current diagnosis for this admission?: Yes Plan: as per d/w dr de la cruz admit per protocol (3) Prostate cancer metastatic to intraabdominal lymph node Is this a current diagnosis for this admission?: Yes Plan: will consult dr betts - Time Time Spent: 50 to 70 Minutes Critical Time spent with patient: 35 or more minutes Medications reviewed and adjusted accordingly: Yes Anticipated discharge: Home Within: Other - Inpatient Certification Based on my medical assessment, after consideration of the patient's comorbidities, presenting symptoms, or acuity I expect that the services needed warrant INPATIENT care.: Yes I certify that my determination is in accordance with my understanding of Medicare's requirements for reasonable and necessary INPATIENT services [42 CFR 412.3e].: Yes Medical Necessity: Significant Comorbidiites Make Outpatient Treatment Too Risky, Need Close Monitoring Due to Risk of Patient Decompensation Post Hospital Care: D/C Clinical Account Executive Documentation - Plan Summary Plan Summary: admit in icu see md order
[2018-11-10 21:47] LABS: APPEARANCE,URINE CLEAR; BILIRUBIN,URINE NEGATIVE (NEGATIVE); COLOR,URINE YELLOW; GLUCOSE, URINE NEGATIVE (NEGATIVE); KETONES,URINE NEGATIVE (NEGATIVE); LEUKOCYTE ESTERASE,URINE NEGATIVE (NEGATIVE); NITRITE,URINE NEGATIVE (NEGATIVE); PROTEIN,URINE NEGATIVE (NEGATIVE); URINE SPECIFIC GRAVITY 1.019
[2018-11-10] MEDS: ENOXAPARIN SODIUM INJ 100 MG/1 ML DISP.SYRIN SUBCUT SCH (22:28)
[2018-11-10] MEDS: PANTOPRAZOLE SODIUM 40 MG VIAL IV SCH (22:29)
[2018-11-10] MEDS ORDERED: HEPARIN SOD (PORCINE) 1,000 UNIT/ML 10 ML VIAL IV PRN (22:39)
--- NOTE | 2018-11-10 23:05 | PDOC CONSULTATION ---
Consultation-Blank Consultation: CARDIOLOGY CONSULTATION by Dr. Tamika Juarez on 11/10/2018. Patient seen at 8:30 PM on 11/10/2018. REASON FOR CONSULTATION: Patient with atypical chest pain, positive troponin I consistent with a non-ST elevation MT.. HISTORY of PRESENT ILLNESS: Patient is a 58-year-old male, with known history of prostate cancer with metastasis to retroperitoneal lymph nodes, and possibly to the iliac crest admitted with symptoms of chest pressure/pain. The patient states since last has been having left front of the chest pressure. The patient is not a very good historian. He also has a dull ache in the chest which is reproducible with pressing on the chest wall in the left front of the chest. This does not reproduce the pressure. The patient is not very this is about whether the symptoms of chest pressure increased with exertion.. He does complain of shortness of breath since the last few days. But there is no palpitations, no PND orthopnea. His EKG shows some minor ST T changes in the inferior lateral astorga but there is at least more than a millimeter ST segment depression in leads V4 to V6. The patient denies any PND or palpitations or orthopnea. He states he has a history of hypertension since last May 2018, but is not on any medication for that. He denies any leg edema. There is no cough or sputum production or wheezing. The patient's initial troponin I which is negative subsequently came back positive at 0.597 suggestive of non-ST elevation MT. His pulmonary CT angiogram shows no pulmonary emboli and except for coronary artery calcifications there is no other abnormal pathology found. PAST MEDICAL HISTORY: Is positive for hypertension untreated. No history of diabetes mellitus or thyroid disease. No prior history of MT. No history of asthma or COPD. The patient is a smoker. The patient denies any diagnosis of sleep apnea. There is no history of pulmonary embolism. There is no chronic kidney disease. There is no history of TIA or CVA. There is no history of headaches migraines or depression. There is no history of vascular disease. Patient does have arthritis. He also has mentioned earlier has prostate cancer with metastasis to the retroperitoneal lymph nodes and recently has had a second dose of Lupron injection. PAST SURGICAL HISTORY: Is positive for anterior cervical fusion in the past. ALLERGIES: He has no known allergies. FAMILY HISTORY: Father had myocardial infarction at age 56. His brother also has history of coronary artery disease and MT. DISPOSITION: The patient is a full code. His sister is his surrogate healthcare decision maker. SOCIAL HISTORY: The patient is a smoker he smoked for a long time. There is no history of alcohol abuse. REVIEW SYSTEMS: CONSTITUTIONAL: Denies any fever chills or rigors. Complains of generalized fatigue, and weakness since last . HEAD: No history of headaches or head injury. EYES: No history of amblyopia, or diplopia. No history of amaurosis fugax. EARS: No history of tinnitus. No history of hearing loss. No vertigo. NOSE: No history of hayfever. No history of nosebleeds. MOUTH: No history of ulcers in the mouth. No history of bleeding from the gums No history of altered taste sensation. THROAT: No history of odynophagia or dysphagia. No history of recurrent sore throats. SKIN: No history of pruritus. No history of eczema. No history of jaundice. NECK: There is no neck pain or neck swelling. There is no history of neck stiffness. LUNGS: No history of asthma or COPD. No history of cough or wheezing. The patient does have a dry smoker's cough. No history of symptoms of upper or lower respiratory tract infection. No history of pleuritic chest pain no history of hemoptysis. The patient does have chest wall pain which is dull pain different from his chest pressure. There is no history of wheezing. There is no history of hemoptysis. No history of pulmonary embolism. No history of sleep apnea. HEART: No prior history of MT. Atypical chest pain but with a positive troponin suggestive of non-ST elevation MT. Also the patient's risk factors for coronary artery disease untreated hypertension, age, family history of coronary artery disease,. with the patient's lipid status not known. There is no history of congestive heart failure. No history of palpitations. No history of PND orthopnea leg edema. No history of syncope. No history of cardiac arrhythmia. GI: No history of GI bleed. History of retroperitoneal metastatic lymph nodes due to prostate cancer present. No history of ascites. No history of jaundice. No history of hepatitis. No history of GERD. No history of GI bleed. MUSCULOSKELETAL: History of arthritis present no history of collagen vascular disease. RENAL: No history of chronic kidney disease. No symptoms a UTI. No symptoms of enlarged prostate. No history of hematuria py uria or dysuria. ENDOCRINE: No history of diabetes mellitus. No history of thyroid disease. No history of polydipsia polyuria. No history of heat or cold intolerance. PHYSICAL EDUCATION AIDE: There is no history of TIA CVA. No history of headaches migraines or seizures. PSYCHIATRIC: No history of anxiety or depression. No history of homicidal ideation. No history of suicidal ideation. VASCULAR: No history of calf or buttock claudication. No history of DVT. HEMATOLOGICAL: No history of bleeding diathesis. No history of clotting disorders. PHYSICAL EXAMINATION: The patient is moderate to morbidly obese. At present in no acute distress at present no chest pressure, but still has reproducible chest wall pain pressing on the left front of the chest wall. He is well-groomed. Selected Entries 11/10/18 11/10/18 11/10/18 13:37 17:01 21:00 Temperature 98.2 F Temperature Oral Source Pulse Rate [ 81 Peripheral] Heart Rate ( 71 71 Monitors) Respiratory 24 H 21 H 19 Rate Blood Pressure 144/97 H Blood Pressure 131/88 H [Left Upper Arm ] Blood Pressure 112 Mean Blood Pressure 102 Mean [Left Upper Arm] Blood Pressure Sitting Position [Left Upper Arm] O2 Sat by Pulse 98 99 97 Oximetry Oxygen Delivery Room Air Method ( includes room air) HEAD: Is atraumatic normocephalic. EYES: Pupils are equal round regular reactive to light accommodation. Extraocular movements are normal. There is no conjunctival pallor. There is no scleral icterus. EARS: Tympanic membranes are intact, external auditory canals are clear. NOSE: There is no deviated nasal septum. There is no inflammation nasal mucous membrane. MOUTH: Mucous membranes of mouth are moist tongue is moist. There is no ulcers. There is no bleeding from the gums. THROAT: There is no redness of the oropharynx there is no exudates. SKIN: There is no skin lesions or skin rashes. There is no particular ecchymosis. NECK: Is supple. There is no JVD. Carotids are equal there is no bruits there is no lymphadenopathy. There is no goiter. There is no accessory muscles of respiration use. Trachea central. LUNGS: Is clear to auscultation percussion, without any rhonchi rales or wheezing. On palpation of the left front of the chest wall reproduces one type of chest pain that the patient is having which is dilated. HEART: S1-S2 is heard. There is no S3 gallop. There is no S4 gallop. There is systolic murmur left sternal border and the apex there is no rub. ABDOMEN: Is obese. Nontender. There is no hepatosplenomegaly. Bowel sounds are heard well there is no rebound guarding or rigidity. EXTREMITIES: Femorals are deep there is no femoral bruits leg pulses are well felt. There is no pedal edema. There is no DVT or cellulitis. There is no calf tenderness. There is no cyanosis or clubbing. Capillary refill is normal. PHYSICAL EDUCATION AIDE: The patient is conscious awake alert oriented x3 with no focal deficits. PSYCHIATRIC: The patient judgment insight are intact. His affect is normal. Current Medications Generic Name Dose Route Start Last Admin Trade Name Freq PRN Reason Stop Dose Admin Acetaminophen 650 mg 11/10/18 19:43 Tylenol 325 Mg Tablet PO 12/10/18 19:42 Q4HP PRN FOR PAIN OR TEMP Aspirin 325 mg 11/11/18 10:00 Aspirin 325 Mg Tablet PO 12/11/18 09:59 DAILY COLEMAN Enoxaparin Sodium 100 mg 11/10/18 22:00 11/10/18 22:28 Lovenox Inj 100 Mg/1 Ml Disp.Syrin SUBCUT 12/10/18 21:59 Not Given Q12 COLEMAN Sodium Chloride 1,000 mls @ 70 mls/hr 11/10/18 19:43 Nacl 0.9% 1000 Ml Iv Soln IV 12/10/18 19:42 CONTINUOUS PRN THIS MED IS NOT "PRN" Nitroglycerin 1 gm 11/11/18 00:00 Nitrol 2% Ointment 1gm Packet TP 12/11/18 00:00 Q6 COLEMAN Pantoprazole Sodium 40 mg 11/10/18 22:00 11/10/18 22:29 Protonix Iv Inj 40 Mg Vial IV 11/13/18 21:59 40 mg Q12 COLEMAN Administration Sodium Chloride 2.5 ml 11/10/18 22:00 11/10/18 22:14 Saline Flush 2.5 Ml Monoject Prefil Syrin IV 12/10/18 21:59 Not Given Q8 COLEMAN Discontinued Medications Generic Name Dose Route Start Last Admin Trade Name Freq PRN Reason Stop Dose Admin Aspirin 324 mg 11/10/18 13:29 11/10/18 13:47 Aspirin 81 Mg Chewable Tablet PO 11/10/18 13:30 Not Given NOW ONE Enoxaparin Sodium 104 mg 11/10/18 19:41 11/10/18 20:39 Lovenox Inj 120 Mg/0.8 Ml Disp.Syrin SUBCUT 11/10/18 19:42 104 mg NOW ONE Administration Heparin Sodium (Porcine) 4,000 unit 11/10/18 19:38 11/10/18 21:25 Heparin Inj 1,000 Unit/Ml 10 Ml Vial IV 11/10/18 19:39 Not Given NOW ONE Heparin Sodium (Porcine) 0 - 12,000 unit 11/10/18 22:39 Heparin Inj 1,000 Unit/Ml 10 Ml Vial IV 12/10/18 22:38 .BOLUS PER PROTOCOL PRN RESPOND TO aPTT VALUE Protocol Heparin Sodium/Dextrose 250 mls @ 0 mls/hr 11/10/18 19:38 Heparin Rtu 25,000 Unit/250 Ml D5w Premix IV 12/10/18 19:37 CONTINUOUS PRN THIS MED IS NOT "PRN" Protocol Titrate Nitroglycerin/Dextrose 50 mg in 250 mls @ 0 mls/hr 11/10/18 19:38 Ntg Rtu 50 Mg/D5w 250 Ml Iv Premix Bottle IV 12/10/18 19:37 CONTINUOUS PRN THIS MED IS NOT "PRN" Protocol Titrate Sodium Chloride 1,000 mls @ 0 mls/hr 11/10/18 19:32 11/10/18 22:14 Nacl 0.9% 1000 Ml Iv Soln IV 11/10/18 19:33 Infused BOLUS ONE Infusion Wide Open Ketorolac Tromethamine 15 mg 11/10/18 13:49 11/10/18 14:16 Toradol Inj/Pf 30 Mg/1 Ml Sdv IV 11/10/18 13:50 15 mg NOW ONE Administration Nitroglycerin 1 gm 11/10/18 19:41 11/10/18 20:36 Nitrol 2% Ointment 1gm Packet TP 11/10/18 19:42 1 gm NOW ONE Administration No Home Medications 06/06/18 Labs- Entire Visit 11/10/18 11/10/18 11/10/18 13:05 13:05 13:05 WBC 4.2 RBC 4.76 Hgb 16.1 Hct 45.3 MCV 95 MCH 33.8 H MCHC 35.5 RDW 13.5 Plt Count 153 Seg Neutrophils % 59.1 Lymphocytes % 30.9 Monocytes % 8.0 Eosinophils % 1.5 Basophils % 0.5 Absolute Neutrophils 2.5 Absolute Lymphocytes 1.3 Absolute Monocytes 0.3 Absolute Eosinophils 0.1 Absolute Basophils 0.0 PT INR Sodium 138.1 Potassium 4.1 Chloride 104 Carbon Dioxide 25 Anion Gap 9 BUN 16 Creatinine 0.68 Est GFR ( Amer) > 60 Est GFR (Non-Af Amer) > 60 Glucose 110 Calcium 10.2 Total Bilirubin 0.7 Direct Bilirubin 0.4 Neonat Total Bilirubin Not Reportable Neonat Direct Bilirubin Not Reportable Neonat Indirect Bili Not Reportable AST 64 H ALT 51 Alkaline Phosphatase 98 Creatine Kinase 70 CK-MB (CK-2) 0.81 Troponin I 0.025 Total Protein 9.0 H Albumin 4.8 Urine Color Urine Appearance Urine pH Ur Specific [employer] Urine Protein Urine Glucose (UA) Urine Ketones Urine Blood Urine Nitrite Urine Bilirubin Urine Urobilinogen Ur Leukocyte Esterase Urine WBC (Auto) Urine RBC (Auto) U Hyaline Cast (Auto) Urine Bacteria (Auto) Urine Red Cell Clumps Urine WBC Clumps Squamous Epi Cells Auto U Non-Squamous Epis Auto Calcium Carbonate Cryst Calcium Phosphate Cryst Calcium Oxalate Cr Auto Leucine Crystals Cystine Crystals Uric Acid Cryst (Auto) Triple Phos Cryst (Auto) Tyrosine Crystals Amorphous Sediment Auto Cellular Casts Epithelial Casts (Auto) Fatty Casts Granular Casts (Auto) Waxy Casts (Auto) Broad Casts RBC Casts (Auto) WBC Casts (Auto) Urine Mucus (Auto) U Trichomonas (Auto) Ur Yeast w Hyphae Urine Yeast (Budding) Urine Ascorbic Acid 11/10/18 11/10/18 11/10/18 13:05 17:20 21:27 WBC RBC Hgb Hct MCV MCH MCHC RDW Plt Count Seg Neutrophils % Lymphocytes % Monocytes % Eosinophils % Basophils % Absolute Neutrophils Absolute Lymphocytes Absolute Monocytes Absolute Eosinophils Absolute Basophils PT 12.3 INR 0.87 Sodium Potassium Chloride Carbon Dioxide Anion Gap BUN Creatinine Est GFR ( Amer) Est GFR (Non-Af Amer) Glucose Calcium Total Bilirubin Direct Bilirubin Neonat Total Bilirubin Neonat Direct Bilirubin Neonat Indirect Bili AST ALT Alkaline Phosphatase Creatine Kinase CK-MB (CK-2) Troponin I 0.597 Total Protein Albumin Urine Color YELLOW Urine Appearance CLEAR Urine pH 6.0 Ur Specific [employer] 1.019 Urine Protein NEGATIVE Urine Glucose (UA) NEGATIVE Urine Ketones NEGATIVE Urine Blood NEGATIVE Urine Nitrite NEGATIVE Urine Bilirubin NEGATIVE Urine Urobilinogen 2.0 H Ur Leukocyte Esterase NEGATIVE Urine WBC (Auto) 2 Urine RBC (Auto) 1 U Hyaline Cast (Auto) 13 Urine Bacteria (Auto) Urine Red Cell Clumps Urine WBC Clumps Squamous Epi Cells Auto <1 U Non-Squamous Epis Auto Calcium Carbonate Cryst Calcium Phosphate Cryst Calcium Oxalate Cr Auto Leucine Crystals Cystine Crystals Uric Acid Cryst (Auto) Triple Phos Cryst (Auto) Tyrosine Crystals Amorphous Sediment Auto Cellular Casts Epithelial Casts (Auto) Fatty Casts Granular Casts (Auto) Waxy Casts (Auto) Broad Casts RBC Casts (Auto) WBC Casts (Auto) Urine Mucus (Auto) MANY U Trichomonas (Auto) Ur Yeast w Hyphae Urine Yeast (Budding) Urine Ascorbic Acid NEGATIVE 11/10/18 22:26 WBC RBC Hgb Hct MCV MCH MCHC RDW Plt Count Seg Neutrophils % Lymphocytes % Monocytes % Eosinophils % Basophils % Absolute Neutrophils Absolute Lymphocytes Absolute Monocytes Absolute Eosinophils Absolute Basophils PT INR Sodium Potassium Chloride Carbon Dioxide Anion Gap BUN Creatinine Est GFR ( Amer) Est GFR (Non-Af Amer) Glucose Calcium Total Bilirubin Direct Bilirubin Neonat Total Bilirubin Neonat Direct Bilirubin Neonat Indirect Bili AST ALT Alkaline Phosphatase Creatine Kinase CK-MB (CK-2) Troponin I Total Protein Albumin Urine Color Cancelled Urine Appearance Cancelled Urine pH Cancelled Ur Specific [employer] Cancelled Urine Protein Cancelled Urine Glucose (UA) Cancelled Urine Ketones Cancelled Urine Blood Cancelled Urine Nitrite Cancelled Urine Bilirubin Cancelled Urine Urobilinogen Cancelled Ur Leukocyte Esterase Cancelled Urine WBC (Auto) Cancelled Urine RBC (Auto) Cancelled U Hyaline Cast (Auto) Cancelled Urine Bacteria (Auto) Cancelled Urine Red Cell Clumps Cancelled Urine WBC Clumps Cancelled Squamous Epi Cells Auto Cancelled U Non-Squamous Epis Auto Cancelled Calcium Carbonate Cryst Cancelled Calcium Phosphate Cryst Cancelled Calcium Oxalate Cr Auto Cancelled Leucine Crystals Cancelled Cystine Crystals Cancelled Uric Acid Cryst (Auto) Cancelled Triple Phos Cryst (Auto) Cancelled Tyrosine Crystals Cancelled Amorphous Sediment Auto Cancelled Cellular Casts Cancelled Epithelial Casts (Auto) Cancelled Fatty Casts Cancelled Granular Casts (Auto) Cancelled Waxy Casts (Auto) Cancelled Broad Casts Cancelled RBC Casts (Auto) Cancelled WBC Casts (Auto) Cancelled Urine Mucus (Auto) Cancelled U Trichomonas (Auto) Cancelled Ur Yeast w Hyphae Cancelled Urine Yeast (Budding) Cancelled Urine Ascorbic Acid Cancelled Chest X-Ray 11/10/18 13:29 IMPRESSION: No acute abnormality of the lungs in AP projection. No focal a irspace opacity. Chest/Abdomen CTA 11/10/18 17:35 IMPRESSION: Slightly limited study. No obvious pulmonary emboli. There is coronary artery calcification. There is no infiltrates or masses in the lungs. There is no pericardial effusion. EKG: Shows sinus rhythm. There is ST segment depression in the inferior leads and also in leads V2 to V6 suspicious for ischemia. IMPRESSION/RECOMMENDATION 1. Non-ST elevation MT: Agree with aspirin. We will place the patient on Nitropaste topically 1 inch every 6 hours, and would start the patient on Lovenox at 1 mg/kg subcutaneously every 12 hours. Also would start the patient on a beta-leia. Would repeat the patient's EKG in the a.m. and trend the troponin. Strong discussed with the patient the option of cardiac catheterization versus stress testing. The patient is aware that if cardiac catheterization is done in the office revascularizable lesion is phone then he would be transferred to [facility] in [place]. The patient will be shown cardiac catheterization teaching video. 2. Chest wall pain: The patient also has chest wall pain. Recommend analgesics. 3. Hypertension: Untreated will see if the patient's being started on beta- leia and nitrates does bring the patient's blood pressure down. 4.? Lipid status: Will check the patient's lipid levels in the a.m. 5. Prostate cancer with retroperitoneal node metastasis and possibly mental stresses of of the iliac crest. Medications reviewed. Recommendations made for starting the patient on medication. Management plan discussed with the attending physician. Medical decision making is of high complexity. 60 minutes spent on this patient more than 50% of time spent in direct patient care. We will follow
[2018-11-10 23:11] LABS: CREATINE KINASE MB 4.69 ng/mL (<4.55)
[2018-11-10] MEDS ORDERED: METOPROLOL TARTRATE 25 MG TABLET PO SCH (23:15)
[2018-11-10] MEDS: METOPROLOL TARTRATE 25 MG TABLET PO SCH (23:18)
[2018-11-10 23:20] LABS: TROPONIN I 1.03 ng/mL
[2018-11-11] MEDS: NITROGLYCERIN 2% OINTMENT 1 GM PACKET TP SCH ×4 (01:48→17:05)
[2018-11-11 05:06] LABS: ABSOLUTE EOSINOPHILS # (AUTO) 0.1 10^3/uL (0.0-0.6); ABSOLUTE LYMPHOCYTES (AUTO) 1.6 10^3/uL (0.5-4.7); ABSOLUTE MONOCYTES (AUTO) 0.4 10^3/uL (0.1-1.4); ABSOLUTE NEUT (AUTO) 1.8 10^3/uL (1.7-8.2); BASOPHILS % (AUTO) 0.7 % (0-2); EOSINOPHILS % (AUTO) 2.9 % (0-6); HEMATOCRIT 36.7 % (37.9-51.0); LYMPHOCYTES % (AUTO) 40.9 % (13-45); MEAN CORPUSCULAR HEMOGLOBIN 33.6 pg (27.0-33.4); MEAN CORPUSCULAR HGB CONC 35.3 g/dL (32.0-36.0); MEAN CORPUSCULAR VOLUME 95 fl (80-97); MONOCYTES % (AUTO) 10.3 % (3-13); PLATELET COUNT 121 10^3/uL (150-450); RED BLOOD COUNT 3.86 10^6/uL (4.35-5.55); RED CELL DISTRIBUTION WIDTH 13.3 % (11.5-14.0); SEGMENTED NEUTROPHILS % (AUTO) 45.2 % (42-78); TOTAL CELLS COUNTED % (AUTO) 100 %; WHITE BLOOD COUNT 3.9 10^3/uL (4.0-10.5)
[2018-11-11 05:14] LABS: BLOOD UREA NITROGEN 18 mg/dL (7-20); CALCIUM 9.1 mg/dL (8.4-10.2); CHOLESTEROL 208.85 mg/dL (0-200); CREATINE KINASE 100 U/L (55-170); GLUCOSE 121 mg/dL (75-110); POTASSIUM 4.7 mmol/L (3.6-5.0); TRIGLYCERIDES 233 mg/dL (<150)
[2018-11-11 05:19] LABS: CARBON DIOXIDE 26 mmol/L (22-30); CHLORIDE 108 mmol/L (98-107); SODIUM 137.6 mmol/L (137-145)
[2018-11-11 05:25] LABS: CREATINE KINASE MB 3.48 ng/mL (<4.55); DIRECT LDL 115 mg/dL (<100)
[2018-11-11 05:31] LABS: TROPONIN I 0.704 ng/mL
[2018-11-11 05:32] LABS: ANION GAP 4 (5-19); VLDL CHOLESTEROL 46.6 mg/dL (10-31)
--- NOTE | 2018-11-11 09:16 | PDOC PROGRESS REPORT ---
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 Larry Haque will discussed with the patient and if he needed patients potentially transfer Discussed with the patient about that all the situations Patient is currently denied any chest pain Reason For Visit: ACTE NON ST CT Physical Exam Vital Signs: Temp Pulse Resp BP Pulse Ox 97.7 F 61 15 130/88 H 94 11/11/18 08:00 11/11/18 08:00 11/11/18 08:00 11/11/18 08:00 11/11/18 08:00 Intake & Output 11/10/18 11/11/18 11/12/18 06:59 06:59 06:59 Intake Total 1000 Output Total 450 300 Balance 550 -300 Weight 111.9 kg General appearance: PRESENT: no acute distress, well-developed, well-nourished Head exam: PRESENT: atraumatic, normocephalic Eye exam: PRESENT: conjunctiva pink, EOMI, PERRLA. ABSENT: scleral icterus Ear exam: PRESENT: normal external ear exam Mouth exam: PRESENT: moist, tongue midline Neck exam: PRESENT: full ROM. ABSENT: carotid bruit, JVD, lymphadenopathy, thyromegaly Respiratory exam: PRESENT: clear to auscultation ghislaine Cardiovascular exam: PRESENT: RRR. ABSENT: diastolic murmur, rubs, systolic murmur Vascular exam: PRESENT: normal capillary refill GI/Abdominal exam: PRESENT: normal bowel sounds, soft. ABSENT: distended, guarding, mass, organolmegaly, rebound, tenderness Rectal exam: PRESENT: deferred Extremities exam: ABSENT: pedal edema Neurological exam: PRESENT: alert, awake, oriented to person, oriented to place, oriented to time, oriented to situation, CN II-XII grossly intact. ABSENT: motor sensory deficit Psychiatric exam: PRESENT: appropriate affect, normal mood. ABSENT: homicidal ideation, suicidal ideation Skin exam: PRESENT: dry, intact, warm. ABSENT: cyanosis, rash Results Laboratory Results: 11/11/18 04:30 11/11/18 04:30 11/10/18 11/10/18 11/10/18 13:05 13:05 21:27 WBC 4.2 RBC 4.76 Hgb 16.1 Hct 45.3 MCV 95 MCH 33.8 H MCHC 35.5 RDW 13.5 Plt Count 153 Seg Neutrophils % 59.1 Lymphocytes % 30.9 Monocytes % 8.0 Eosinophils % 1.5 Basophils % 0.5 Absolute Neutrophils 2.5 Absolute Lymphocytes 1.3 Absolute Monocytes 0.3 Absolute Eosinophils 0.1 Absolute Basophils 0.0 Sodium 138.1 Potassium 4.1 Chloride 104 Carbon Dioxide 25 Anion Gap 9 BUN 16 Creatinine 0.68 Est GFR ( Amer) > 60 Est GFR (Non-Af Amer) > 60 Glucose 110 Calcium 10.2 Total Bilirubin 0.7 AST 64 H ALT 51 Alkaline Phosphatase 98 Total Protein 9.0 H Albumin 4.8 Triglycerides Cholesterol LDL Cholesterol Direct VLDL Cholesterol HDL Cholesterol Urine Color YELLOW Urine Appearance CLEAR Urine pH 6.0 Ur Specific [place] 1.019 Urine Protein NEGATIVE Urine Glucose (UA) NEGATIVE Urine Ketones NEGATIVE Urine Blood NEGATIVE Urine Nitrite NEGATIVE Ur Leukocyte Esterase NEGATIVE Urine WBC (Auto) 2 Urine RBC (Auto) 1 11/10/18 11/11/18 11/11/18 22:26 04:30 04:30 WBC 3.9 L RBC 3.86 L Hgb 13.0 L D Hct 36.7 L MCV 95 MCH 33.6 H MCHC 35.3 RDW 13.3 Plt Count 121 L Seg Neutrophils % 45.2 Lymphocytes % 40.9 Monocytes % 10.3 Eosinophils % 2.9 Basophils % 0.7 Absolute Neutrophils 1.8 Absolute Lymphocytes 1.6 Absolute Monocytes 0.4 Absolute Eosinophils 0.1 Absolute Basophils 0.0 Sodium 137.6 Potassium 4.7 Chloride 108 H Carbon Dioxide 26 Anion Gap 4 L BUN 18 Creatinine 0.66 Est GFR ( Amer) > 60 Est GFR (Non-Af Amer) > 60 Glucose 121 H Calcium 9.1 Total Bilirubin AST ALT Alkaline Phosphatase Total Protein Albumin Triglycerides 233 H Cholesterol 208.85 H LDL Cholesterol Direct 115 H VLDL Cholesterol 46.6 H HDL Cholesterol 51 Urine Color Cancelled Urine Appearance Cancelled Urine pH Cancelled Ur Specific [place] Cancelled Urine Protein Cancelled Urine Glucose (UA) Cancelled Urine Ketones Cancelled Urine Blood Cancelled Urine Nitrite Cancelled Ur Leukocyte Esterase Cancelled Urine WBC (Auto) Cancelled Urine RBC (Auto) Cancelled 04/15/19 04/15/19 04/15/19 13:05 13:05 17:20 Creatine Kinase 70 CK-MB (CK-2) 0.81 Troponin I 0.025 0.597 NT-Pro-B Natriuret Pep 11/10/18 11/10/18 11/11/18 22:26 22:26 04:30 Creatine Kinase 88 CK-MB (CK-2) 4.69 H 3.48 Troponin I 1.030 0.704 NT-Pro-B Natriuret Pep 303 11/11/18 04:30 Creatine Kinase 100 CK-MB (CK-2) Troponin I NT-Pro-B Natriuret Pep Impressions: Chest X-Ray 11/10/18 13:29 IMPRESSION: No acute abnormality of the lungs in AP projection. No focal airspace opacity. Chest/Abdomen CTA 11/10/18 17:35 IMPRESSION: Slightly limited study. No obvious pulmonary emboli. Assessment & Plan - Diagnosis (1) Chest pain Qualifiers: Chest pain type: unspecified Qualified Code(s): R07.9 - Chest pain, unspecified Is this a current diagnosis for this admission?: Yes Plan: Currently all stable (2) Non-ST elevated myocardial infarction (non-STEMI) Is this a current diagnosis for this admission?: Yes Plan: Will wait for the cardiology (3) Prostate cancer metastatic to intraabdominal lymph node Is this a current diagnosis for this admission?: Yes Plan: Patient is currently getting the Lupron injections every 3 months per oncology (4) Smoker Is this a current diagnosis for this admission?: Yes Plan: Discussed with the patient about smoking counseling - Time Time Spent with patient: 25-34 minutes Medications reviewed and adjusted accordingly: Yes Anticipated discharge: Other Within: Other - Plan Summary Plan Summary: Discussed with the cardiology who will evaluate the patient and decide from there
[2018-11-11] MEDS: METOPROLOL TARTRATE 25 MG TABLET PO SCH (09:18)
[2018-11-11] MEDS: PANTOPRAZOLE SODIUM 40 MG VIAL IV SCH (09:19)
[2018-11-11] MEDS: ENOXAPARIN SODIUM INJ 100 MG/1 ML DISP.SYRIN SUBCUT SCH (09:21)
[2018-11-11] MEDS ORDERED: ASPIRIN 325 MG TABLET PO SCH (10:00)
--- NOTE | 2018-11-11 10:16 | EKG REPORT ---
SEVERITY:- BORDERLINE ECG - SINUS RHYTHM PROBABLE LEFT ATRIAL ABNORMALITY : Confirmed by: Tamika Juarez MD 11-Nov-2018 10:14:52
[2018-11-11 12:10] LABS: CREATINE KINASE MB 2.95 ng/mL (<4.55); TROPONIN I 0.393 ng/mL
--- NOTE | 2018-11-11 14:05 | PDOC TRANSFER SUMMARY ---
General Admission Date/PCP: 11/10/18 19:56 PROMISE HAND MD Transfer Date: 11/11/18 Accepting Facility: [facility] Resuscitation Status: Full Code - Transfer Diagnosis (1) Chest pain Is this a current diagnosis for this admission?: Yes (2) Non-ST elevated myocardial infarction (non-STEMI) Is this a current diagnosis for this admission?: Yes (3) Prostate cancer metastatic to intraabdominal lymph node Is this a current diagnosis for this admission?: Yes (4) Smoker Is this a current diagnosis for this admission?: Yes - Transfer Medications Home Medications: No Home Medications 06/06/18 Transfer Medications: Current Medications Acetaminophen (Tylenol 325 Mg Tablet) 650 mg PO Q4HP PRN PRN Reason: FOR PAIN OR TEMP Stop: 12/10/18 19:42 Aspirin (Aspirin 325 Mg Tablet) 325 mg PO DAILY COLEMAN Stop: 12/11/18 09:59 Last Admin: 11/11/18 09:18 Dose: 325 mg Documented by: Enoxaparin Sodium (Lovenox Inj 100 Mg/1 Ml Disp.Syrin) 100 mg SUBCUT Q12 COLEMAN Stop: 12/10/18 21:59 Last Admin: 11/11/18 09:21 Dose: 100 mg Documented by: Metoprolol Tartrate (Lopressor 25 Mg Tablet) 25 mg PO Q12 COLEMAN Stop: 12/10/18 23:14 Last Admin: 11/11/18 09:18 Dose: 25 mg Documented by: Nitroglycerin (Nitrol 2% Ointment 1gm Packet) 1 gm TP Q6 COLEMAN Stop: 12/11/18 00:00 Last Admin: 11/11/18 11:34 Dose: 1 gm Documented by: Pantoprazole Sodium (Protonix Iv Inj 40 Mg Vial) 40 mg IV Q12 [place]LEMAN Stop: 11/13/18 21:59 Last Admin: 11/11/18 09:19 Dose: 40 mg Documented by: Sodium Chloride (Saline Flush 2.5 Ml Monoject Prefil Syrin) 2.5 ml IV Q8 COLEMAN Stop: 12/10/18 21:59 Last Admin: 11/11/18 13:37 Dose: Not Given Documented by: - Allergies Allergies/Adverse Reactions: No Known Allergies Allergy (Verified 06/06/18 09:33) Hospital Course Hospital Course: This is a 58-year-old male came with the chest pain diagnosed with a non-ST PA Patient initially admitting in the ICU seen by the Dr. Juarez Patient was put on Lovenox beta-leia and nitro Patient doing well Patient is supposed to have a cardiac cath done but hospital does not have the technicians to be able to the cardiac cath Initially patients discussed with the cardiology and want to stay here but then cardiology call me back and patient was to go to the tertiary centers Patient's otherwise currently denied any chest pain to than any shortness of the breath Patient was transferred to the cardiac cath Physical Exam Vital Signs: Temp Pulse Resp BP Pulse Ox 97.7 F 67 22 H 150/99 H 95 11/11/18 08:00 11/11/18 12:00 11/11/18 12:00 11/11/18 12:00 11/11/18 12:00 Intake & Output 11/10/18 11/11/18 11/12/18 06:59 06:59 06:59 Intake Total 1000 240 Output Total 450 550 Balance 550 -310 Weight 111.9 kg General appearance: PRESENT: no acute distress, well-developed, well-nourished Head exam: PRESENT: atraumatic, normocephalic Eye exam: PRESENT: conjunctiva pink, EOMI, PERRLA. ABSENT: scleral icterus Ear exam: PRESENT: normal external ear exam Mouth exam: PRESENT: moist, tongue midline Neck exam: ABSENT: carotid bruit, JVD, lymphadenopathy, thyromegaly Respiratory exam: PRESENT: clear to auscultation ghislaine. ABSENT: rales, rhonchi, wheezes Cardiovascular exam: PRESENT: RRR. ABSENT: diastolic murmur, rubs, systolic murmur Pulses: PRESENT: normal dorsalis pedis pul Vascular exam: PRESENT: normal capillary refill GI/Abdominal exam: PRESENT: normal bowel sounds, soft. ABSENT: distended, guarding, mass, organolmegaly, rebound, tenderness Rectal exam: PRESENT: deferred Extremities exam: PRESENT: full ROM. ABSENT: calf tenderness, clubbing, pedal edema Neurological exam: PRESENT: alert, awake, oriented to person, oriented to place, oriented to time, oriented to situation, CN II-XII grossly intact. ABSENT: motor sensory deficit Psychiatric exam: PRESENT: appropriate affect, normal mood. ABSENT: homicidal ideation, suicidal ideation Skin exam: PRESENT: dry, intact, warm. ABSENT: cyanosis, rash Results Laboratory Results: 11/11/18 04:30 11/11/18 04:30 11/10/18 11/10/18 11/10/18 13:05 13:05 21:27 WBC 4.2 RBC 4.76 Hgb 16.1 Hct 45.3 MCV 95 MCH 33.8 H MCHC 35.5 RDW 13.5 Plt Count 153 Seg Neutrophils % 59.1 Lymphocytes % 30.9 Monocytes % 8.0 Eosinophils % 1.5 Basophils % 0.5 Absolute Neutrophils 2.5 Absolute Lymphocytes 1.3 Absolute Monocytes 0.3 Absolute Eosinophils 0.1 Absolute Basophils 0.0 Sodium 138.1 Potassium 4.1 Chloride 104 Carbon Dioxide 25 Anion Gap 9 BUN 16 Creatinine 0.68 Est GFR ( Amer) > 60 Est GFR (Non-Af Amer) > 60 Glucose 110 Calcium 10.2 Total Bilirubin 0.7 AST 64 H ALT 51 Alkaline Phosphatase 98 Total Protein 9.0 H Albumin 4.8 Triglycerides Cholesterol LDL Cholesterol Direct VLDL Cholesterol HDL Cholesterol Urine Color YELLOW Urine Appearance CLEAR Urine pH 6.0 Ur Specific [place] 1.019 Urine Protein NEGATIVE Urine Glucose (UA) NEGATIVE Urine Ketones NEGATIVE Urine Blood NEGATIVE Urine Nitrite NEGATIVE Ur Leukocyte Esterase NEGATIVE Urine WBC (Auto) 2 Urine RBC (Auto) 1 11/10/18 11/11/18 11/11/18 22:26 04:30 04:30 WBC 3.9 L RBC 3.86 L Hgb 13.0 L D Hct 36.7 L MCV 95 MCH 33.6 H MCHC 35.3 RDW 13.3 Plt Count 121 L Seg Neutrophils % 45.2 Lymphocytes % 40.9 Monocytes % 10.3 Eosinophils % 2.9 Basophils % 0.7 Absolute Neutrophils 1.8 Absolute Lymphocytes 1.6 Absolute Monocytes 0.4 Absolute Eosinophils 0.1 Absolute Basophils 0.0 Sodium 137.6 Potassium 4.7 Chloride 108 H Carbon Dioxide 26 Anion Gap 4 L BUN 18 Creatinine 0.66 Est GFR ( Amer) > 60 Est GFR (Non-Af Amer) > 60 Glucose 121 H Calcium 9.1 Total Bilirubin AST ALT Alkaline Phosphatase Total Protein Albumin Triglycerides 233 H Cholesterol 208.85 H LDL Cholesterol Direct 115 H VLDL Cholesterol 46.6 H HDL Cholesterol 51 Urine Color Cancelled Urine Appearance Cancelled Urine pH Cancelled Ur Specific [place] Cancelled Urine Protein Cancelled Urine Glucose (UA) Cancelled Urine Ketones Cancelled Urine Blood Cancelled Urine Nitrite Cancelled Ur Leukocyte Esterase Cancelled Urine WBC (Auto) Cancelled Urine RBC (Auto) Cancelled 11/10/18 11/10/18 11/10/18 13:05 13:05 17:20 Creatine Kinase 70 CK-MB (CK-2) 0.81 Troponin I 0.025 0.597 NT-Pro-B Natriuret Pep 11/10/18 11/10/18 11/11/18 22:26 22:26 04:30 Creatine Kinase 88 CK-MB (CK-2) 4.69 H 3.48 Troponin I 1.030 0.704 NT-Pro-B Natriuret Pep 303 11/11/18 11/11/18 11/11/18 04:30 11:10 11:10 Creatine Kinase 100 75 CK-MB (CK-2) 2.95 Troponin I 0.393 NT-Pro-B Natriuret Pep Impressions: Chest X-Ray 11/10/18 13:29 IMPRESSION: No acute abnormality of the lungs in AP projection. No focal airspace opacity. Chest/Abdomen CTA 11/10/18 17:35 IMPRESSION: Slightly limited study. No obvious pulmonary emboli. Plan Time Spent: Greater than 30 Minutes - Patient at this point transfer to the tertiary center
--- NOTE | 2018-11-11 15:11 | PDOC CONSULTATION ---
Consultation Consult Date: 11/11/18 Consult reason:: Hematology/Oncology consultation was requested for patient well known to Dr. Torres with prostate cancer. History of Present Illness Admission Date/PCP: 11/10/18 19:56 PROMISE HAND MD History of Present Illness: CHELSIE GILES is a 58 year old male who was diagnosed with Prostate cancer in 2014. Stage IV, but no known bone mets. Most recently he has been receiving Lupron injections. Most recent was 09/18/2018 and next is due 12/11/2018. He presented with chest pain and was found to have acute NH. Today, he states that the pain is much better and further tests are planned today. Past Medical History Cardiac Medical History: Reports: Hyperlipidema, Hypertension Denies: Coronary Artery Disease, Myocardial Infarction Pulmonary Medical History: Denies: Asthma, Bronchitis, Chronic Obstructive Pulmonary Disease (COPD), Pneumonia Neurological Medical History: Denies: Seizures Malignancy Medical History: Reports: Liver Cancer, Other Musculoskeltal Medical History: Reports: Arthritis - HAILEE HANDS Hematology: Denies: Anemia Past Surgical History Past Surgical History: Reports: Other - ACF. Social History Smoking Status: Current Every Day Smoker Cigarettes Packs Per Day: 1 Number of Years Smokin Last Time Smoked: 11/10/18 Frequency of Alcohol Use: Heavy Hx Recreational Drug Use: No Drugs: None Hx Prescription Drug Abuse: No - Advance Directive Resuscitation Status: Full Code Family History Family History: Reviewed & Not Pertinent Parental Family History Reviewed: Yes Children Family History Reviewed: No Sibling(s) Family History Reviewed.: Yes Medication/Allergy Home Medications: No Home Medications 06/06/18 Allergies/Adverse Reactions: No Known Allergies Allergy (Verified 06/06/18 09:33) Review of Systems Constitutional: ABSENT: fever(s), headache(s) Eyes: ABSENT: visual disturbances Ears: ABSENT: hearing changes Nose, Mouth, and Throat: ABSENT: sore throat Cardiovascular: PRESENT: chest pain Respiratory: PRESENT: dyspnea Gastrointestinal: PRESENT: nausea Genitourinary: ABSENT: dysuria Musculoskeletal: ABSENT: back pain Integumentary: ABSENT: rash Neurological: ABSENT: confusion Psychiatric: ABSENT: anxiety Physical Exam Vital Signs: Temp Pulse Resp BP Pulse Ox 97.7 F 67 14 150/99 H 96 11/11/18 08:00 11/11/18 12:00 11/11/18 12:00 11/11/18 12:00 11/11/18 12:00 Intake & Output 11/10/18 11/11/18 11/12/18 06:59 06:59 06:59 Intake Total 1000 240 Output Total 450 550 Balance 550 -310 Weight 111.9 kg General appearance: PRESENT: well-developed, well-nourished Exam: 58 year old male. Head exam: PRESENT: atraumatic, normocephalic Eye exam: PRESENT: EOMI Mouth exam: PRESENT: tongue midline Neck exam: ABSENT: lymphadenopathy, tenderness Respiratory exam: PRESENT: clear to auscultation hailee, unlabored Cardiovascular exam: PRESENT: RRR GI/Abdominal exam: PRESENT: soft. ABSENT: organolmegaly, tenderness Extremities exam: ABSENT: pedal edema Musculoskeletal exam: PRESENT: normal inspection Neurological exam: PRESENT: alert, awake Psychiatric exam: PRESENT: appropriate affect Focused psych exam: ABSENT: restlessness Skin exam: PRESENT: normal color Results Laboratory Results: 11/11/18 04:30 11/11/18 04:30 11/10/18 11/10/18 11/10/18 13:05 21:27 22:26 WBC RBC Hgb Hct MCV MCH MCHC RDW Plt Count Seg Neutrophils % Lymphocytes % Monocytes % Eosinophils % Basophils % Absolute Neutrophils Absolute Lymphocytes Absolute Monocytes Absolute Eosinophils Absolute Basophils Sodium 138.1 Potassium 4.1 Chloride 104 Carbon Dioxide 25 Anion Gap 9 BUN 16 Creatinine 0.68 Est GFR ( Amer) > 60 Est GFR (Non-Af Amer) > 60 Glucose 110 Calcium 10.2 Total Bilirubin 0.7 AST 64 H ALT 51 Alkaline Phosphatase 98 Total Protein 9.0 H Albumin 4.8 Triglycerides Cholesterol LDL Cholesterol Direct VLDL Cholesterol HDL Cholesterol Urine Color YELLOW Cancelled Urine Appearance CLEAR Cancelled Urine pH 6.0 Cancelled Ur Specific [place] 1.019 Cancelled Urine Protein NEGATIVE Cancelled Urine Glucose (UA) NEGATIVE Cancelled Urine Ketones NEGATIVE Cancelled Urine Blood NEGATIVE Cancelled Urine Nitrite NEGATIVE Cancelled Ur Leukocyte Esterase NEGATIVE Cancelled Urine WBC (Auto) 2 Cancelled Urine RBC (Auto) 1 Cancelled 11/11/18 11/11/18 04:30 04:30 WBC 3.9 L RBC 3.86 L Hgb 13.0 L D Hct 36.7 L MCV 95 MCH 33.6 H MCHC 35.3 RDW 13.3 Plt Count 121 L Seg Neutrophils % 45.2 Lymphocytes % 40.9 Monocytes % 10.3 Eosinophils % 2.9 Basophils % 0.7 Absolute Neutrophils 1.8 Absolute Lymphocytes 1.6 Absolute Monocytes 0.4 Absolute Eosinophils 0.1 Absolute Basophils 0.0 Sodium 137.6 Potassium 4.7 Chloride 108 H Carbon Dioxide 26 Anion Gap 4 L BUN 18 Creatinine 0.66 Est GFR ( Amer) > 60 Est GFR (Non-Af Amer) > 60 Glucose 121 H Calcium 9.1 Total Bilirubin AST ALT Alkaline Phosphatase Total Protein Albumin Triglycerides 233 H Cholesterol 208.85 H LDL Cholesterol Direct 115 H VLDL Cholesterol 46.6 H HDL Cholesterol 51 Urine Color Urine Appearance Urine pH Ur Specific [place] Urine Protein Urine Glucose (UA) Urine Ketones Urine Blood Urine Nitrite Ur Leukocyte Esterase Urine WBC (Auto) Urine RBC (Auto) 11/10/18 11/10/18 11/10/18 13:05 13:05 17:20 Creatine Kinase 70 CK-MB (CK-2) 0.81 Troponin I 0.025 0.597 NT-Pro-B Natriuret Pep 11/10/18 11/10/18 11/11/18 22:26 22:26 04:30 Creatine Kinase 88 CK-MB (CK-2) 4.69 H 3.48 Troponin I 1.030 0.704 NT-Pro-B Natriuret Pep 303 11/11/18 11/11/18 11/11/18 04:30 11:10 11:10 Creatine Kinase 100 75 CK-MB (CK-2) 2.95 Troponin I 0.393 NT-Pro-B Natriuret Pep Impressions: Chest X-Ray 11/10/18 13:29 IMPRESSION: No acute abnormality of the lungs in AP projection. No focal airspace opacity. Chest/Abdomen CTA 11/10/18 17:35 IMPRESSION: Slightly limited study. No obvious pulmonary emboli. Assessment & Plan - Diagnosis (1) Non-ST elevated myocardial infarction (non-STEMI) Is this a current diagnosis for this admission?: Yes Plan: Treatment as per cardiology. (2) Prostate cancer metastatic to intraabdominal lymph node Is this a current diagnosis for this admission?: Yes Plan: No evidence that cancer is affecting his heart at present. Plan Lupron injection as scheduled in November. - Plan Summary Plan Summary: Drop in blood counts most likely dilutional. No indication for transfusions c urrently. No contraindication for blood thinners. I will follow with you. Please call if needed.
[2018-11-11 16:10] VITALS: BP 156/98
--- NOTE | 2018-11-12 00:30 | Progress Note ---
Provider Note Provider Note: CARDIOLOGY PROGRESS NOTE by Dr. Tamika Juarez on 11/11/2018. SUBJECTIVE: The patient has no further chest pain or chest pressure. He does not have chest wall pain. His troponins are trending down. There is no arrhythmia seen on the monitor. The patient denies any shortness of breath. There is no PND orthopnea or leg edema. There is no palpitations. There is no bleeding on Lovenox. There is no TIA CVA symptoms. PHYSICAL EXAMINATION: The patient is moderate to morbidly obese. In no acute distress. He is well-groomed Selected Entries 11/11/18 11/11/18 11/11/18 15:23 16:00 16:09 Temperature 98.1 F Temperature Oral Source Pulse Rate 71 Heart Rate ( 65 Monitors) Respiratory 20 Rate Blood Pressure 156/98 H [Left Upper Arm ] Blood Pressure 117 Mean [Left Upper Arm] Blood Pressure Sitting Position [Left Upper Arm] O2 Sat by Pulse 97 Oximetry Oxygen Delivery Room Air Method HEAD: Is atraumatic normocephalic. EYES: Pupils are equal round regular reactive to light accommodation. Extraocular movements are normal. There is no conjunctival pallor. There is no scleral icterus. EARS: Tympanic membranes are intact, external auditory canals are clear. NOSE: There is no deviated nasal septum. There is no inflammation nasal mucous membrane. MOUTH: Mucous membranes of mouth are moist tongue is moist. There is no ulcers. There is no bleeding from the gums. THROAT: There is no redness of the oropharynx there is no exudates. SKIN: There is no skin lesions or skin rashes. There is no particular ecchymosis. NECK: Is supple. There is no JVD. Carotids are equal there is no bruits there is no lymphadenopathy. There is no goiter. There is no accessory muscles of respiration use. Trachea central. LUNGS: Is clear to auscultation percussion, without any rhonchi rales or wheezing. On palpation of the left front of the chest wall reproduces one type of chest pain that the patient is having which is dilated. HEART: S1-S2 is heard. There is no S3 gallop. There is no S4 gallop. There is systolic murmur left sternal border and the apex there is no rub. ABDOMEN: Is obese. Nontender. There is no hepatosplenomegaly. Bowel sounds are heard well there is no rebound guarding or rigidity. EXTREMITIES: Femorals are deep there is no femoral bruits leg pulses are well felt. There is no pedal edema. There is no DVT or cellulitis. There is no calf tenderness. There is no cyanosis or clubbing. Capillary refill is normal. 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 PSYCHIATRIC: The patient judgment insight are intact. His affect is normal. 11/10/18 11/10/18 11/11/18 13:05 22:26 04:30 WBC RBC Hgb Hct MCV MCH Plt Count PT 12.3 INR 0.87 APTT Sodium Potassium Chloride Carbon Dioxide Anion Gap BUN Creatinine Est GFR (Non-Af Amer) Glucose Calcium Creatine Kinase CK-MB (CK-2) 4.69 H 3.48 Troponin I 1.030 0.704 NT-Pro-B Natriuret Pep 303 Triglycerides Cholesterol LDL Cholesterol Direct VLDL Cholesterol HDL Cholesterol 11/11/18 11/11/18 11/11/18 04:30 04:30 04:30 WBC 3.9 L RBC 3.86 L Hgb 13.0 L D Hct 36.7 L MCV 95 MCH 33.6 H Plt Count 121 L PT INR APTT 33.3 Sodium 137.6 Potassium 4.7 Chloride 108 H Carbon Dioxide 26 Anion Gap 4 L BUN 18 Creatinine 0.66 Est GFR (Non-Af Amer) > 60 Glucose 121 H Calcium 9.1 Creatine Kinase 100 CK-MB (CK-2) Troponin I NT-Pro-B Natriuret Pep Triglycerides 233 H Cholesterol 208.85 H LDL Cholesterol Direct 115 H VLDL Cholesterol 46.6 H HDL Cholesterol 51 11/11/18 11/11/18 11:10 11:10 WBC RBC Hgb Hct MCV MCH Plt Count PT INR APTT Sodium Potassium Chloride Carbon Dioxide Anion Gap BUN Creatinine Est GFR (Non-Af Amer) Glucose Calcium Creatine Kinase 75 CK-MB (CK-2) 2.95 Troponin I 0.393 NT-Pro-B Natriuret Pep Triglycerides Cholesterol LDL Cholesterol Direct VLDL Cholesterol HDL Cholesterol EKG: Shows sinus rhythm. Probable left atrial abnormality. No acute ischemia. There are ST segment depressions in the prior EKG of normalized. IMPRESSION/RECOMMENDATION 1. Non-ST elevation PR: EKG as normalized, and the patient's troponin trending down. Continue aspirin, Lovenox, beta-blockers, and topical nitrates. Discussed the option of stress testing versus cardiac catheterization. It is now known to me that this week there cannot be cardiac catheterization done at this facility due to lack of building consultant during the catheterization. The patient initially wanted to have a stress test. Subsequently change his mind and want to be transferred to [facility] in [place]. I have discussed with Dr. Benites the building consultant, and transfer arrangements made for the patient to be transferred to [place]/On license of [facility] for cardiac catheterization. 2. Chest wall pain: This is resolved 3. Hypertension: Untreated will see if the patient's being started on beta- leia and nitrates does bring the patient's blood pressure down. Patient blood pressure still not optimally controlled controlled. Will await prior to starting another and antihypertensive since the [facility]. 4. Hyperlipidemia. The patient is HDL levels are good at 51. The patient's triglycerides and LDL levels are high. Recommend strict low-fat low-cholesterol diet and start the patient on statin. 5. Prostate cancer with retroperitoneal node metastasis and possibly metstasisof of the iliac crest. Medications reviewed. Management plan discussed with attending physician including transfer arrangements that I have made. Case has been discussed with the hospitalist in [facility] [place] and transfer arrangements made. Earlier the case has been discussed at length with Dr. Benites the building consultant. The patient has been shown the cardiac catheterization teaching video. Benefits risks and complications of cardiac catheterization observe been discussed in detail. Medical decision making is of high complexity. The patient is aware of the benefits and risks of transfer. Will sign off.
== END 2018-11-11 21:25 | disposition short-term general hospital (02) | DRG 281 ==
LOC: ER 13:23 → EH 19:56 → ICU 23:42 → 3N 11-11 12:25
PROVIDERS: ADMIT Family Medicine; ATTEND Family Medicine
DX: I21.4 Non-ST elevation (NSTEMI) myocardial infarction (principal); C77.9 Secondary and unspecified malignant neoplasm of lymph node, unspecified; C78.6 Secondary malignant neoplasm of retroperitoneum and peritoneum; C61 Malignant neoplasm of prostate; I10 Essential (primary) hypertension; E78.5 Hyperlipidemia, unspecified; E66.01 Morbid (severe) obesity due to excess calories; F17.210 Nicotine dependence, cigarettes, uncomplicated
CPT/HCPCS: 36415; 71045; 71275; 80048; 80053; 80061; 81001; 82550; 82553; 83880; 84484; 85025; 85610; 85730; 93005; 93010; 96374; 99291; J1650; J1885; J3490; J7030; S0164

== ENCOUNTER → 2019-03-25 | Outpatient (CLI) | payer BC, MEDICAID ==
--- NOTE | 2019-03-26 12:06 | RADIOLOGY REPORT (SQ) ---
EXAM DESCRIPTION: NM WHOLE BODY BONE SCAN COMPLETED DATE/TIME: 03/26/2019 8:08 am REASON FOR STUDY: (C61)MALIGNANT NEOPLASM OF PROSTATE C61 MALIGNANT NEOPLASM OF PROSTATE COMPARISON: PET-CT 05/25/2018 RADIONUCLIDE AND DOSE: 21.2 millicuries Tc99m MDP. The route of agent administration: Intravenous. ADDITIONAL DRUGS AND DOSES: None. TECHNIQUE: Routine delayed images at 3 hour post radionuclide injection acquired of the bony skeleto n including anterior and posterior whole-body projections and additional focused images as needed. LIMITATIONS: None. FINDINGS: BONES: No increased uptake worrisome for right spread bony metastatic disease. There is increased uptake in characteristic locations of osteoarthritis at the acromioclavicular join ts, bilateral knees, right midfoot. KIDNEYS: Symmetric excretion without obstruction. OTHER: No other significant finding. IMPRESSION: No bone scan evidence of metastatic disease given history of prostate cancer COMMENT: Quality measure 147: Current bone scan is compared with any available plain radiographs, p rior bone scans, and CT/MRI. TECHNICAL DOCUMENTATION: JOB ID: [id number] [employer]- All Rights Reserved Reading location - IP/workstation name: [email or web address]
== END ==
LOC: RAD 07:33
PROVIDERS: ATTEND Internal Medicine
DX: C61 Malignant neoplasm of prostate (principal)
CPT/HCPCS: 78306; A9561; Q9969

== ENCOUNTER → 2019-03-27 | Outpatient (CLI) | payer BC, MEDICAID ==
--- NOTE | 2019-03-27 08:56 | RADIOLOGY REPORT (SQ) ---
EXAM DESCRIPTION: CT ABD/PELVIS WITH IV ORAL COMPLETED DATE/TIME: 03/27/2019 8:41 am REASON FOR STUDY: PROSTATE CA (C61), LIVER CELL CARCINOMA (C22.0) C61 MALIGNANT NEOPLASM OF PROSTAT E C22.0 LIVER CELL CARCINOMA COMPARISON: 05/08/2018, 04/24/2017 TECHNIQUE: CT scan of the abdomen and pelvis performed using helical scanning technique with dynamic intravenous contrast injection. No oral contrast. Images reviewed with lung, soft tissue, and bone windows. Reconstructed coronal and sagittal MPR images reviewed. Delayed images for evaluation of the urinary system also acquired. All images stored on PACS. All CT scanners at this facility use dose modulation, iterative reconstruction, and/or weight based d osing when appropriate to reduce radiation dose to as low as reasonably achievable (ALARA). [facility]: Dose Right [facility]: CareDose [facility]: Dose Right [facility]: Teradose 4D [facility]: Music[employer] CONTRAST TYPE AND DOSE: contrast/concentration: Isovue 350.00 mg/ml; Total Contrast Delivered: 100.0 ml; Total Saline Delivered: 72.0 ml RENAL FUNCTION: BUN 14, creatinine 0.66 RADIATION DOSE: . LIMITATIONS: None. FINDINGS: LOWER CHEST: No significant findings. No nodules or infiltrates. LIVER: Small hypoattenuating lesion in the caudate lobe is unchanged measured 1.6 cm. This is adjace nt to a surgical clip. The liver is otherwise unremarkable. SPLEEN: Normal size. No focal lesions. PANCREAS: No masses. No significant calcifications. No adjacent inflammation or peripancreatic fluid collections. Pancreatic duct not dilated. GALLBLADDER: No identified stones by CT criteria. No inflammatory changes to suggest cholecystitis. ADRENAL GLANDS: No significant masses or asymmetry. RIGHT KIDNEY AND URETER: No solid masses. No significant calcifications. No hydronephrosis or hyd roureter. LEFT KIDNEY AND URETER: No solid masses. No significant calcifications. No hydronephrosis or hydr oureter. AORTA AND VESSELS: No aneurysm. No dissection. Renal arteries, SMA, celiac without stenosis. RETROPERITONEUM: Persistent retroperitoneal adenopathy not significantly changed from prior study. L eft pelvic wall lymph nodes are smaller in size. BOWEL AND PERITONEAL CAVITY: No masses or inflammatory changes. No free fluid or peritoneal masses. APPENDIX: Normal. PELVIS: Prostate implant seeds are noted. ABDOMINAL WALL: No masses. No hernias. BONES: No significant or acute findings. OTHER: No other significant finding. IMPRESSION: 1. Grossly stable abdominal retroperitoneal adenopathy. Lymph nodes along the left pelv ic sidewall have decreased in size. 2. Small hypoattenuating lesion in the caudate lobe of the liver is unchanged. TECHNICAL DOCUMENTATION: JOB ID: [id number] Quality ID # [id number]: Final reports with documentation of one or more dose reduction techniques (e.g., Au tomated exposure control, adjustment of the mA and/or kV according to patient size, use of iterative reconstruction technique) 2010 [employer]- All Rights Reserved Reading location - IP/workstation name: [email or web address]-
== END ==
LOC: RAD 08:09
PROVIDERS: ATTEND Internal Medicine
DX: C61 Malignant neoplasm of prostate (principal); C22.0 Liver cell carcinoma
CPT/HCPCS: 74177

== ENCOUNTER → 2019-10-13 | Outpatient (CLI) | payer MEDICAID ==
--- NOTE | 2019-10-13 13:34 | RADIOLOGY REPORT (SQ) ---
EXAM DESCRIPTION: CHEST 2 VIEWS COMPLETED DATE/TIME: 10/13/2019 1:13 pm REASON FOR STUDY: R07.89 OTHER CHEST PAIN COMPARISON: 02/06/2019 EXAM PARAMETERS: NUMBER OF VIEWS: two views TECHNIQUE: Digital Frontal and Lateral radiographic views of the chest acquired. RADIATION DOSE: NA LIMITATIONS: none FINDINGS: LUNGS AND PLEURA: No opacities, masses or pneumothorax. No pleural effusion. MEDIASTINUM AND HILAR STRUCTURES: Right hilar prominence. HEART AND VASCULAR STRUCTURES: Heart normal size. No evidence for failure. BONES: No acute findings. HARDWARE: Sternotomy wires. OTHER: No other significant finding. IMPRESSION: Right hilar prominence. Cannot exclude right hilar mass. Consider CT. TECHNICAL DOCUMENTATION: JOB ID: [id number] 2010 [employer]- All Rights Reserved Reading location - IP/workstation name: [email or web address]
== END ==
LOC: RAD 12:52
PROVIDERS: ATTEND Surgery
DX: T81.31XA Disruption of external operation (surgical) wound, not elsewhere classified, initial encounter (principal); R07.89 Other chest pain
CPT/HCPCS: 71046

== ENCOUNTER → 2019-10-21 | Outpatient (CLI) | payer MEDICAID ==
--- NOTE | 2019-10-21 11:08 | RADIOLOGY REPORT (SQ) ---
EXAM DESCRIPTION: CT CHEST WITH COMPLETED DATE/TIME: 10/21/2019 10:23 am REASON FOR STUDY: HILAR MASS R91.8 OTHER NONSPECIFIC ABNORMAL FINDING OF LUNG FIELD COMPARISON: 01/02/2019 [facility] TECHNIQUE: CT scan of the chest performed using helical scanning technique with dynamic intravenous contrast injection. Images reviewed with lung, soft tissue and bone windows. Reconstructed coronal and sagittal MPR and MIP images reviewed. All images stored on PACS. All CT scanners at this facility use dose modulation, iterative reconstruction, and/or weight based d osing when appropriate to reduce radiation dose to as low as reasonably achievable (ALARA). [facility]: Dose Right [facility]: CareDose [facility]: Dose Right [facility]: Teradose 4D [facility]: [employer] CONTRAST TYPE AND DOSE: contrast/concentration: Isovue 350.00 mg/ml; Total Contrast Delivered: 80.0 ml; Total Saline Delivered: 55.0 ml RENAL FUNCTION: GFR > 60. RADIATION DOSE: CT Rad equipment meets quality standard of care and radiation dose reduction techniq ues were employed. CTDIvol: 16.1 mGy. DLP: 666 mGy-cm. . LIMITATIONS: None. FINDINGS: LUNGS AND PLEURA: Mild paraseptal emphysema in the upper lobes. Stable pleural-based nodu le right lower lobe measuring 8 mm, series 4, image 85. HILAR AND MEDIASTINAL STRUCTURES: Enlarged mediastinal, paraesophageal and right hilar nodes, the lar gest subcarinal 3.1 x 4.9 cm. HEART AND VASCULAR STRUCTURES: No aneurysm or dissection. No central pulmonary emboli. No pericardi al effusion. HARDWARE: CABG. UPPER ABDOMEN: Cirrhosis. Retroperitoneal adenopathy. Limited exam. THYROID AND OTHER SOFT TISSUES: No masses. No adenopathy. BONES: Nothing acute. OTHER: No other significant finding. IMPRESSION: Mediastinal and retroperitoneal adenopathy suspicious for lymphoma. Stable right lower lobe pulmonary nodule. TECHNICAL DOCUMENTATION: JOB ID: [id number] Quality ID # 436: Final reports with documentation of one or more dose reduction techniques (e.g., Au tomated exposure control, adjustment of the mA and/or kV according to patient size, use of iterative reconstruction technique) 2010 [email or web address]- All Rights Reserved Reading location - IP/workstation name: [email or web address]
== END ==
LOC: RAD 09:37
PROVIDERS: ATTEND Surgery
DX: J43.8 Other emphysema (principal); R91.8 Other nonspecific abnormal finding of lung field
CPT/HCPCS: 71260; 82565

== ENCOUNTER → 2019-12-01 | Outpatient (CLI) | payer MEDICAID ==
--- NOTE | 2019-12-01 11:05 | RADIOLOGY REPORT (SQ) ---
EXAM DESCRIPTION: CT ABD/PELVIS WITH IV ONLY IMAGES COMPLETED DATE/TIME: 12/01/2019 10:04 am REASON FOR STUDY: PROSTATE CA (C61) C61 MALIGNANT NEOPLASM OF PROSTATE COMPARISON: Bone scan from 07/15/[address] of the abdomen with contrast from 03/27/2019. . TECHNIQUE: CT scan of the abdomen and pelvis performed using helical scanning technique with dynamic intravenous contrast injection. No oral contrast. Images reviewed with lung, soft tissue, and bone windows. Reconstructed coronal and sagittal MPR images reviewed. Delayed images for evaluation of the urinary system also acquired. All images stored on PACS. All CT scanners at this facility use dose modulation, iterative reconstruction, and/or weight based d osing when appropriate to reduce radiation dose to as low as reasonably achievable (ALARA). [facility]: Dose Right [facility]: CareDose [facility]: Dose Right [facility]: Teradose 4D [facility]: [employer] CONTRAST TYPE AND DOSE: Contrast/concentration: Isovue 350.00 mg/ml; Total Contrast Delivered: 100.0 ml; Total Saline Delivered: 72.0 ml RENAL FUNCTION: Creatinine 0.6 milligrams/deciliter RADIATION DOSE: CT Rad equipment meets quality standard of care and radiation dose reduction techniq ues were employed. CTDIvol: 18.9 - 19.0 mGy. DLP: 1992 mGy-cm. LIMITATIONS: None. FINDINGS: LOWER CHEST: Fat containing Bochdalek's hernia on the right. There is a conglomerate of n ew and enlarging paraesophageal, superior diaphragmatic, and inferior diaphragmatic lymph nodes that measure up to 2.3 cm in short axis diameter. LIVER: The nodular contour of the liver is suggestive of underlying cirrhosis. The portal veins are patent. There is no hepatic mass. SPLEEN: No splenomegaly or splenic mass. PANCREAS: No acute gross abnormality of the pancreas. GALLBLADDER: No abnormality that is apparent on CT. ADRENAL GLANDS: The diffuse nodular enlargement of the lateral limb of the left adrenal gland is unch anged. RIGHT KIDNEY AND URETER: Abnormal soft tissue within the mid ureter (image 55 of series 5 and 56 of s milan 601) that results in moderate hydronephrosis and delayed uptake and excretion of the injected i ntravenous contrast. There is no renal or ureteral calcification or solid renal mass. LEFT KIDNEY AND URETER: No solid mass, hydronephrosis, nephrolithiasis, hydroureter or ureterolithias is. AORTA AND VESSELS: No aneurysm of the abdominal aorta. The abdominopelvic vasculature is patent. RETROPERITONEUM: New enlarging retroperitoneal lymph nodes and left deep inguinal lymph nodes that me asure up to 2 cm in short axis diameter ; for reference periaortic lymph node on image 36 of series 2 measures 2 cm in short axis diameter compared to 1.8 cm on the prior CT, in the left obturator lymph node on image 66 of series 2) measures 1.7 cm in short axis diameter compared to 9 mm on the prior C T. BOWEL AND PERITONEAL CAVITY: Enlarging gastric lymph nodes (image 18 of series 2) that measure up to 12 mm in short axis diameter. There is colonic diverticulosis without diverticulitis. There is no b owel obstruction, bowel wall thickening or pericolonic/ perienteric inflammation. There is mild thickening of the peritoneal reflections in the lower quadrants. There is no free intr aperitoneal fluid or gas. APPENDIX: Normal. PELVIS: Brachytherapy seeds in the prostate gland. The urinary bladder is nondistended. ABDOMINAL WALL: No abdominal wall mass or hernia. BONES: The heterogeneous lesion in the iliac sides of the right SI joint (image 61 of series 2) is un changed. There is re- demonstration of a focal kyphotic angulation of the thoracolumbar spine center ed at L1 and associated mild retrolisthesis of L1 relative to L2. There is no acute fracture. OTHER: No other finding. IMPRESSION: 1. New enlarging paraesophageal, superior diaphragmatic, inferior diaphragmatic, gastri c, retroperitoneal, and left deep inguinal adenopathy consistent with progression of robbie metastases . 2. Abnormal soft tissue within the mid right ureter (image 55 of series 5 and 56 of series 601) that results in moderate hydronephrosis and delayed uptake and excretion of the injected intravenous cont rast. The finding is concerning for an ureteral metastasis. TECHNICAL DOCUMENTATION: JOB ID: [id number] Quality ID # 436: Final reports with documentation of one or more dose reduction techniques (e.g., Au tomated exposure control, adjustment of the mA and/or kV according to patient size, use of iterative reconstruction technique) 2010 [employer]- All Rights Reserved Reading location - IP/workstation name: [email or web address]
--- NOTE | 2019-12-01 15:35 | RADIOLOGY REPORT (SQ) ---
EXAM DESCRIPTION: NM WHOLE BODY BONE SCAN IMAGES COMPLETED DATE/TIME: 12/01/2019 1:50 pm REASON FOR STUDY: PROSTATE CA (C61) C61 MALIGNANT NEOPLASM OF PROSTATE COMPARISON: Bone scan from 07/15/2019. RADIONUCLIDE AND DOSE: 22.2 millicuries Tc99m MDP. The route of agent administration: Intravenous. ADDITIONAL DRUGS AND DOSES: None. TECHNIQUE: The patient was injected with the radionuclide and after 3 hours was placed on the stable to obtain the scan. However once on the table the patient started to complain of shortness of breat h and chest discomfort and requested that the scan be aborted. LIMITATIONS: None. FINDINGS: See above. IMPRESSION: NONDIAGNOSTIC BONE SCAN FOR REASONS STATED ABOVE. COMMENT: Quality measure 147: Current bone scan is compared with any available plain radiographs, p rior bone scans, and CT/MRI. TECHNICAL DOCUMENTATION: JOB ID: [id number] 2010 [employer]- All Rights Reserved Reading location - IP/workstation name: [email or web address]
== END ==
LOC: RAD 08:35
PROVIDERS: ATTEND Internal Medicine
DX: C61 Malignant neoplasm of prostate (principal)
CPT/HCPCS: 82565; 78306; 74177; A9561; Q9969

== ENCOUNTER → 2019-12-10 | Outpatient (CLI) | payer MEDICAID ==
--- NOTE | 2019-12-10 15:01 | RADIOLOGY REPORT (SQ) ---
EXAM DESCRIPTION: NM WHOLE BODY BONE SCAN IMAGES COMPLETED DATE/TIME: 12/10/2019 2:23 pm REASON FOR STUDY: (C61)MALIGNANT NEOPLASM OF PROSTATE C61 MALIGNANT NEOPLASM OF PROSTATE COMPARISON: 07/15/2019 RADIONUCLIDE AND DOSE: 21.6 millicuries Tc99m HDP. The route of agent administration: Intravenous. ADDITIONAL DRUGS AND DOSES: None. TECHNIQUE: Routine delayed images at 3 hour post radionuclide injection acquired of the bony skeleto n including anterior and posterior whole-body projections and additional focused images as needed. LIMITATIONS: None. FINDINGS: BONES: Focal uptake right SI joint corresponds to a heterogeneous sclerotic lesion on CT s can 12/01/2019. Increased uptake lower C-spine unchanged. KIDNEYS: Symmetric excretion without obstruction. OTHER: No other significant finding. IMPRESSION: Probable metastatic lesion right SI joint. No significant change. COMMENT: Quality measure 147: Current bone scan is compared with any available plain radiographs, p rior bone scans, and CT/MRI. TECHNICAL DOCUMENTATION: JOB ID: [id number] 2010 [employer]- All Rights Reserved Reading location - IP/workstation name: [email or web address]
== END ==
LOC: RAD 09:37
PROVIDERS: ATTEND Internal Medicine
DX: C61 Malignant neoplasm of prostate (principal)
CPT/HCPCS: 78306; A9561; Q9969

== ENCOUNTER 2019-12-23 06:59 | Day surgery (SDC) | payer MEDICAID ==
[2019-12-18 11:19] LABS: HEMATOCRIT 35.6 % (37.9-51.0); HEMOGLOBIN 12.2 g/dL (13.5-17.0); MEAN CORPUSCULAR HEMOGLOBIN 30.6 pg (27.0-33.4); MEAN CORPUSCULAR HGB CONC 34.2 g/dL (32.0-36.0); MEAN CORPUSCULAR VOLUME 89 fl (80-97); PLATELET COUNT 223 10^3/uL (150-450); RED BLOOD COUNT 3.99 10^6/uL (4.35-5.55); WHITE BLOOD COUNT 4.1 10^3/uL (4.0-10.5)
--- NOTE | 2019-12-18 11:39 | RADIOLOGY REPORT (SQ) ---
EXAM DESCRIPTION: CHEST PA/LATERAL IMAGES COMPLETED DATE/TIME: 12/18/2019 11:28 am REASON FOR STUDY: PRE-OP COMPARISON: 10/13/2019 EXAM PARAMETERS: NUMBER OF VIEWS: two views TECHNIQUE: Digital Frontal and Lateral radiographic views of the chest acquired. RADIATION DOSE: NA LIMITATIONS: none FINDINGS: LUNGS AND PLEURA: Bilateral interstitial airspace disease slightly more prominent than not ed in September. This could represent vascular congestion. There are no effusions. No consolidation. MEDIASTINUM AND HILAR STRUCTURES: No masses or contour abnormalities. HEART AND VASCULAR STRUCTURES: Heart normal size. No evidence for failure. BONES: No acute findings. HARDWARE: Sternotomy wires are in place. OTHER: Metallic fragment overlies the left upper lateral chest wall. IMPRESSION: Prominent interstitial markings. Mild vascular congestion cannot be excluded. TECHNICAL DOCUMENTATION: JOB ID: [id number] 2010 [employer]- All Rights Reserved Reading location - IP/workstation name: [email or web address]
--- NOTE | 2019-12-18 18:51 | EKG REPORT ---
SEVERITY:- BORDERLINE ECG - SINUS RHYTHM PROBABLE LEFT ATRIAL ABNORMALITY : Confirmed by: Tamika Juarez MD 18-Dec-2019 18:49:56
[~2019-12-23 06:59] MED LIST: ACETAMINOPHEN 325 MG TABLET PO PRN; CEFAZOLIN 1 GM/D5W RTU 1 GM/50 ML RTUPB IV ONE; CEFAZOLIN 1 GM/D5W RTU 1 GM/50 ML RTUPB IV PRN; LACTATED RINGERS 1000 ML IV PRN; LIDOCAINE 0.5% INJ-PF (5 MG/ML) 50 ML SDV SUBCUT PRN
[2019-12-23] MEDS ORDERED: LIDOCAINE 1%/EPINEPHRINE INJ 20 ML VIAL ONE (07:07)
[2019-12-23] MEDS ORDERED: MIDAZOLAM 2 MG/2 ML INJ ONE (08:28)
[2019-12-23] MEDS ORDERED: FENTANYL CITRATE INJ/PF 100 MCG/2 ML AMPUL ONE (08:28)
[2019-12-23] MEDS ORDERED: LIDOCAINE 2% INJ-PF (20 MG/ML) 10 ML AMPUL ONE (08:28)
[2019-12-23] MEDS ORDERED: PROPOFOL INJ 200 MG/20 ML VIAL IV ONE (08:28)
[2019-12-23] MEDS ORDERED: ONDANSETRON HCL INJ/PF 4 MG/2 ML SDV ONE (08:28)
[2019-12-23] MEDS ORDERED: ONDANSETRON HCL INJ/PF 4 MG/2 ML SDV IV PRN (09:02)
[2019-12-23] MEDS ORDERED: OXYCODONE-ACETAMINOPHEN 5-325 MG TABLET PO PRN (09:02)
[2019-12-23] MEDS ORDERED: FENTANYL CITRATE INJ/PF 100 MCG/2 ML AMPUL IV PRN ×3 (09:02)
[2019-12-23] MEDS ORDERED: DIPHENHYDRAMINE HCL 50 MG/ML VIAL IV PRN (09:02)
[2019-12-23] MEDS ORDERED: PROMETHAZINE HCL INJ 25 MG/1 ML VIAL IV PRN (09:02)
--- NOTE | 2019-12-23 09:28 | Discharge Summary ---
Discharge Summary (SDC) - Discharge Final Diagnosis: Metastatic prostate cancer Date of Surgery: 12/23/19 Discharge Date: 12/23/19 Condition: Good Treatment or Instructions: May use port; may shower in 48 hours; and to call [place] [facility] in 2 weeks for follow-up check. Referrals: PROMISE HAND MD [Primary Care Provider] - Discharge Diet: As Tolerated Discharge Activity: Activity As Tolerated Home Care Assistance: None Needed Report the Following to Your Physician Immediately: Shortness of Breath, Increase in Pain, Fever over 101 Degrees
--- NOTE | 2019-12-23 09:33 | Operative Report ---
Operative Report DATE OF SURGERY: 12/23/19 PREOPERATIVE DIAGNOSIS: Metastatic prostate cancer POSTOPERATIVE DIAGNOSIS: Same OPERATION: 1. Ultrasound directed insertion of catheter in right neck. 2. Placement of right subclavian port, single-chamber. 3. Interpretation of intraoperative fluoroscopy SURGEON: JOSÉ MIGUEL RASHID ANESTHESIA: LMAC TISSUE REMOVED OR ALTERED: None COMPLICATIONS: None ESTIMATED BLOOD LOSS: Scant INTRAOPERATIVE FINDINGS: See below PROCEDURE: Patient was taken to the preop holding area in the main operating room where LMAC anesthesia was induced. Arms were tucked, neck prepped and draped sterile fashion. Surgical plan and surgical timeout were conducted. Right neck was scanned, and the right internal jugular vein was felt to be suitable for cannulation. The skin overlying the right neck was anesthetized with 1% plain lidocaine. An opening was made the skin with a #15 blade, and using ultrasound as a real-time guide, a micro needle and wire were threaded into the right internal jugular vein. A suitable site for placement of the port was chosen in the right subclavian position. Skin again anesthetized 1% plain lidocaine. A 3 cm incision was made with a #15 blade, and using electrocautery and gentle blunt dissection, a port pocket large enough to accommodate a single-chamber Ydxepw-x-Wiqe catheter was developed. The 8 Icelandic catheter was then trimmed to the appropriate length, tunnel between the 2 incisions, tension of the port with the plastic securing ring. The port was tucked into the subclavian pocket. Under fluoroscopic guidance, the micro wire was switched over to a conventional 0.030 guidewire using the micro-introducer sheath. The 8 Icelandic dilator and sheath were then threaded over the conventional guidewire under fluoroscopic guidance. The guidewire and dilator were removed, free catheter fragment and threaded into the strip away sheath, strip away sheath removed leaving the catheter in good position. Fluoroscopically the tip of the catheter was in the right atrium, there is no kinking of the catheter at the level of the neck. The catheter chamber was aspirated and flushed with heparinized saline. Sponge and needle counts correct. Wounds were closed with 3-0 Vicryl benzoin and Steri- Strips. Patient tolerated the procedure well, taken to the recovery in stable condition.
[2019-12-23 11:18] VITALS: BP 145/88
--- NOTE | 2019-12-24 08:22 | RADIOLOGY REPORT (SQ) ---
EXAM DESCRIPTION: FLUORO/CV PLACEMENT IMAGES COMPLETED DATE/TIME: 12/23/2019 9:31 am REASON FOR STUDY: RIGHT SIDED PORT-A-CATH C61 MALIGNANT NEOPLASM OF PROSTATE COMPARISON: None. FLUOROSCOPY TIME: Less than 0.1 minute. 2 images saved to PACS. TECHNIQUE: Intra-operative images acquired during surgical procedure to evaluate progress. NUMBER OF IMAGES: 2 images. LIMITATIONS: None. FINDINGS: Images of the chest acquired during port placement. IMPRESSION: IMAGE(S) OBTAINED DURING PROCEDURE. COMMENT: Quality ID 145: Final reports for procedures using fluoroscopy that document radiation exp osure indices, or exposure time and number of fluorographic images (if radiation exposure indices are not available) Please consult full operative report of the attending physician for description of the procedure. TECHNICAL DOCUMENTATION: JOB ID: [id number] 2010 [employer]- All Rights Reserved Reading location - IP/workstation name: [email or web address]
== END 2019-12-23 11:00 | disposition home or self-care (01) ==
LOC: OROUT 06:59
PROVIDERS: ATTEND Surgery
DX: C79.82 Secondary malignant neoplasm of genital organs (principal); C22.9 Malignant neoplasm of liver, not specified as primary or secondary; I10 Essential (primary) hypertension; I25.2 Old myocardial infarction; F17.210 Nicotine dependence, cigarettes, uncomplicated; B19.20 Unspecified viral hepatitis C without hepatic coma; H81.09 Meniere's disease, unspecified ear; H91.93 Unspecified hearing loss, bilateral; E66.9 Obesity, unspecified; Z79.891 Long term (current) use of opiate analgesic; Z79.82 Long term (current) use of aspirin; Z03.818 Encounter for observation for suspected exposure to other biological agents ruled out
CPT/HCPCS: 93005; 36415; 85027; 87635; 71046; 77001; 93010; 36561; J2250; J0690; J3010; J3490 ×2; J2405; J2704; J1642; 532; C1752; C1788

== ENCOUNTER 2020-01-04 12:54 | Emergency (ER) | payer MEDICAID ==
[2020-01-04 13:06] VITALS: BP 151/96
--- NOTE | 2020-01-04 13:17 | ER Document Report ---
ED GI/ - General Chief Complaint: Penile Bleeding Stated Complaint: PENILE BLEEDING Time Seen by Provider: 01/04/20 13:08 Primary Care Provider: PROMISE HAND MD [Primary Care Provider] - Follow up as needed Mode of Arrival: Ambulatory Information source: Patient Notes: Patient presents complaining of rash to groin and bleeding to the scrotum. Patient states the rash has been over the past week and the bleeding started this afternoon. Patient denies any trauma to the scrotum. Patient denies any hematuria. Patient denies any other abnormal bleeding or bruising. 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 Patient states that his oncologist called prior to his arrival. TRAVEL OUTSIDE OF THE [place] IN LAST 30 DAYS: No - HPI Patient complains to provider of: Other - Scrotal bleeding. No: Flank pain Quality of pain: No pain Pain Level: Denies Associated symptoms: denies: Blood in emesis, Blood in stool, Diarrhea, Dizzy, Nausea, Urinary hesitancy, Urinary frequency, Urinary retention, Urinary urgency, Vomiting Exacerbated by: Denies Relieved by: Denies Similar symptoms previously: No Recently seen / treated by doctor: No - Related Data Allergies/Adverse Reactions: No Known Allergies Allergy (Verified 12/23/19 07:36) Past Medical History - General Information source: Patient - Social History Smoking Status: Current Every Day Smoker Frequency of alcohol use: None Drug Abuse: None Occupation: None Family History: Reviewed & Not Pertinent - Past Medical History Cardiac Medical History: Reports: Hx Coronary Artery Disease - cabg x 4, Hx Hypercholesterolemia, Hx Hypertension Denies: Hx Heart Attack Pulmonary Medical History: Denies: Hx Asthma, Hx Bronchitis, Hx COPD, Hx Pneumonia Neurological Medical History: Denies: Hx Cerebrovascular Accident, Hx Seizures Renal/ Medical History: Denies: Hx Peritoneal Dialysis Malignancy Medical History: Reports Hx Liver Cancer, Reports Hx Prostate Cancer - with mets to the lymphnodes and retroperitoneal space Musculoskeletal Medical History: Reports Hx Arthritis - HAILEE HANDS Past Surgical History: Reports: Other - ACF. - Immunizations Hx Diphtheria, Pertussis, Tetanus Vaccination: Yes Review of Systems - Review of Systems Constitutional: No symptoms reported. denies: Fever, Recent illness EENT: No symptoms reported Cardiovascular: No symptoms reported Respiratory: No symptoms reported. denies: Cough, Short of breath Gastrointestinal: No symptoms reported. denies: Abdominal pain, Vomiting Genitourinary: No symptoms reported Male Genitourinary: Other - Bleeding from scrotum Musculoskeletal: No symptoms reported. denies: Back pain Skin: Rash - Rash to groin for the past week Hematologic/Lymphatic: No symptoms reported Neurological/Psychological: No symptoms reported Physical Exam - Vital signs Vitals: Temp Pulse Resp BP Pulse Ox 99.2 F 95 20 151/96 H 97 01/04/20 12:58 01/04/20 12:58 01/04/20 12:58 01/04/20 12:58 01/04/20 12:58 - General General appearance: Appears well, Alert In distress: None - HEENT Head: Normocephalic, Atraumatic Eyes: Normal Conjunctiva: Normal Nasal: Normal Mouth/Lips: Normal Mucous membranes: Normal Neck: Normal, Supple. No: Lymphadenopathy - Respiratory Respiratory status: No respiratory distress Chest status: Nontender Breath sounds: Normal. No: Rales, Rhonchi, Stridor, Wheezing Chest palpation: Normal - Cardiovascular Rhythm: Regular Heart sounds: S1 appreciated, S2 appreciated - Genitourinary Tenderness: Nontender Cremasteric reflex: Normal Scrotum: Other - Multiple small varicose veins noted to scrotum, scabbed area over vein of scrotum, no active bleeding at this time PCT Julaina as standby - Back Back: Normal, Nontender. No: CVA tenderness - Extremities General upper extremity: Normal inspection, Normal ROM General lower extremity: Normal inspection, Normal ROM - Neurological Neuro grossly intact: Yes Cognition: Normal Jocy Coma Scale Eye Opening: Spontaneous Garrison Coma Scale Verbal: Oriented Garrison Coma Scale Motor: Obeys Commands Garrison Coma Scale Total: 15 - Psychological Associated symptoms: Normal affect, Normal mood - Skin Skin Temperature: Warm Skin Moisture: Dry Course - Re-evaluation Re-evalutation: 01/04/20 15:45 Patient agitated in parking lot, patient states that he is leaving his house enough. Patient angry that staff were unable to obtain blood specimen from his port and then someone was not successful with a peripheral stick. Patient declines having another staff member attempt to draw his blood. Patient states that he is leaving. Patient declines waiting for any additional paperwork The patient has decided not to proceed with further recommended testing or treatment to determine the cause of her symptoms. The risk and alternatives to the recommendation were discussed the patient voiced understanding. The patient appears clinically to have the capacity to make this decision. The patient was instructed that they could return to the ER at any time to complete the testing or treatment. - Vital Signs Vital signs: Temp Pulse Resp BP Pulse Ox 99.2 F 95 20 151/96 H 97 01/04/20 12:58 01/04/20 12:58 01/04/20 12:58 01/04/20 12:58 01/04/20 12:58 Discharge - Discharge Clinical Impression: Scrotal bleeding Disposition: AGAINST MEDICAL ADVICE Referrals: PROMISE HAND MD [Primary Care Provider] - Follow up as needed
== END 2020-01-04 15:55 | disposition left against medical advice (07) ==
LOC: ER 12:54
DX: N48.89 Other specified disorders of penis (principal); R21 Rash and other nonspecific skin eruption; F17.200 Nicotine dependence, unspecified, uncomplicated; I25.10 Atherosclerotic heart disease of native coronary artery without angina pectoris
CPT/HCPCS: 99283

== ENCOUNTER → 2020-02-25 | Outpatient (CLI) | payer MEDICAID ==
--- NOTE | 2020-02-25 11:51 | RADIOLOGY REPORT (SQ) ---
EXAM DESCRIPTION: CT CHEST WITH IMAGES COMPLETED DATE/TIME: 02/25/2020 8:34 am REASON FOR STUDY: (C61)MALIGNANT NEOPLASM OF PROSTATE C61 MALIGNANT NEOPLASM OF PROSTATE COMPARISON: 10/21/2019 TECHNIQUE: CT scan of the chest performed using helical scanning technique with dynamic intravenous contrast injection. Images reviewed with lung, soft tissue and bone windows. Reconstructed coronal and sagittal MPR and MIP images reviewed. All images stored on PACS. All CT scanners at this facility use dose modulation, iterative reconstruction, and/or weight based d osing when appropriate to reduce radiation dose to as low as reasonably achievable (ALARA). [facility]: Dose Right [facility]: CareDose [facility]: Dose Right [facility]: Teradose 4D [facility]: [employer] RENAL FUNCTION: GFR > 60. RADIATION DOSE: CT Rad equipment meets quality standard of care and radiation dose reduction techniq ues were employed. CTDIvol: 16.8 - 22.7 mGy. DLP: 3031 mGy-cm. . LIMITATIONS: None. FINDINGS: LUNGS AND PLEURA: Stable mild paraseptal emphysema. Occasional subcentimeter pulmonary no dules which are stable. On image 62, there is a new part solid nodule in the middle lobe measuring 9 mm. HILAR AND MEDIASTINAL STRUCTURES: Adenopathy much improved. Largest lymph node is level 7 measuring 1.5 by 2.5 cm, previously 3.1 x 4.9 cm. HEART AND VASCULAR STRUCTURES: Filling defects in branches of both pulmonary arteries. No central PE . HARDWARE: Old sternotomy dehiscence which is a known finding. UPPER ABDOMEN: See separate report of the CT of the abdomen. THYROID AND OTHER SOFT TISSUES: No masses. No adenopathy. BONES: See above. Nothing acute. OTHER: No other significant finding. IMPRESSION: 1. Much improvement in mediastinal adenopathy. 2. Pulmonary emboli in the branches of both pulmonary arteries. 3. Mostly stable subcentimeter nodules. New 9 mm nodule in the middle lobe. COMMENT: Findings were called to Dr. Baldwin at 1137 hours. TECHNICAL DOCUMENTATION: JOB ID: [id number] Quality ID # 436: Final reports with documentation of one or more dose reduction techniques (e.g., Au tomated exposure control, adjustment of the mA and/or kV according to patient size, use of iterative reconstruction technique) 2010 [employer]- All Rights Reserved Reading location - IP/workstation name: [email or web address]
--- NOTE | 2020-02-25 12:22 | RADIOLOGY REPORT (SQ) ---
EXAM DESCRIPTION: NM WHOLE BODY BONE SCAN IMAGES COMPLETED DATE/TIME: 02/25/2020 11:26 am REASON FOR STUDY: (C61)MALIGNANT NEOPLASM OF PROSTATE C61 MALIGNANT NEOPLASM OF PROSTATE COMPARISON: 12/10/2019 RADIONUCLIDE AND DOSE: 20 millicuries Tc99m MDP. The route of agent administration: Intravenous. ADDITIONAL DRUGS AND DOSES: None. TECHNIQUE: Routine delayed images at 3 hours post radionuclide injection acquired of the bony skelet on including anterior and posterior whole-body projections and additional focused images as needed. LIMITATIONS: None. FINDINGS: BONES: The abnormal uptake in the right sacroiliac joint on the prior study is much improv ed. There is only faint uptake seen in the ilium. Increased uptake in the cervical spine is less in tense. KIDNEYS: Right hydronephrosis. OTHER: No other significant finding. IMPRESSION: Presumed metastatic lesion in the right sacroiliac area is much improved as described. Cervical spine uptake is also improved. There is right hydronephrosis. COMMENT: Quality measure 147: Current bone scan is compared with any available plain radiographs, p rior bone scans, and CT/MRI. TECHNICAL DOCUMENTATION: JOB ID: [id number] 2010 [employer]- All Rights Reserved Reading location - IP/workstation name: [email or web address]
--- NOTE | 2020-02-25 12:29 | RADIOLOGY REPORT (SQ) ---
EXAM DESCRIPTION: CT ABD/PELVIS WITH IV ONLY IMAGES COMPLETED DATE/TIME: 02/25/2020 8:34 am REASON FOR STUDY: (C61)MALIGNANT NEOPLASM OF PROSTATE C61 MALIGNANT NEOPLASM OF PROSTATE COMPARISON: 12/01/2019 TECHNIQUE: CT scan of the abdomen and pelvis performed using helical scanning technique with dynamic intravenous contrast injection. No oral contrast. Images reviewed with lung, soft tissue, and bone windows. Reconstructed coronal and sagittal MPR images reviewed. Delayed images for evaluation of the urinary system also acquired. All images stored on PACS. All CT scanners at this facility use dose modulation, iterative reconstruction, and/or weight based d osing when appropriate to reduce radiation dose to as low as reasonably achievable (ALARA). [facility]: Dose Right [facility]: CareDose [facility]: Dose Right [facility]: Teradose 4D [facility]: [employer] CONTRAST TYPE AND DOSE: contrast/concentration: Isovue 350.00 mmol/ml; Total Contrast Delivered: 100 .0 ml; Total Saline Delivered: 71.9 ml RENAL FUNCTION: GFR > 60. RADIATION DOSE: . LIMITATIONS: None. FINDINGS: LOWER CHEST: See separate report of the CT of the chest. LIVER: Clips near the caudate lobe. Sub capsular nodularity. SPLEEN: Normal size. No focal lesions. PANCREAS: No masses. No significant calcifications. No adjacent inflammation or peripancreatic fluid collections. Pancreatic duct not dilated. GALLBLADDER: No identified stones by CT criteria. No inflammatory changes to suggest cholecystitis. ADRENAL GLANDS: No significant masses or asymmetry. RIGHT KIDNEY AND URETER: No solid masses. No significant calcifications. Mild hydronephrosis and hydroureter not significantly changed. LEFT KIDNEY AND URETER: No solid masses. No significant calcifications. No hydronephrosis or hydr oureter. AORTA AND VESSELS: No aneurysm. RETROPERITONEUM: Marked improvement in adenopathy. Residual 1.7 x 1.0 cm left para-aortic node. BOWEL AND PERITONEAL CAVITY: No masses or inflammatory changes. No free fluid or peritoneal masses. APPENDIX: Normal. PELVIS: Radiation seed markers in the prostate bed. ABDOMINAL WALL: No masses. No hernias. BONES: No significant or acute findings. OTHER: No other significant finding. IMPRESSION: 1. Good response to therapy with markedly improved retroperitoneal adenopathy. 2. Unchanged mild right hydronephrosis and hydroureter. TECHNICAL DOCUMENTATION: JOB ID: [id number] Quality ID # 436: Final reports with documentation of one or more dose reduction techniques (e.g., Au tomated exposure control, adjustment of the mA and/or kV according to patient size, use of iterative reconstruction technique) 2010 [employer]- All Rights Reserved Reading location - IP/workstation name: [email or web address]
== END ==
LOC: RAD 07:47
PROVIDERS: ATTEND Physician Assistant Medical
DX: C61 Malignant neoplasm of prostate (principal); I26.99 Other pulmonary embolism without acute cor pulmonale; N13.30 Unspecified hydronephrosis; R91.8 Other nonspecific abnormal finding of lung field
CPT/HCPCS: 82565; 78306; 71260; 74177; A9503; Q9969

== ENCOUNTER → 2020-05-11 | Outpatient (CLI) | payer MEDICAID ==
--- NOTE | 2020-05-11 10:27 | RADIOLOGY REPORT (SQ) ---
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 0 ml; Total Saline Delivered: 40.0 ml RENAL FUNCTION: Creatinine 0.7 COMPARISON: 02/25/2020 TECHNIQUE: CT scan of the chest performed using helical scanning technique with dynamic intravenous contrast injection. Images reviewed with lung, soft tissue and bone windows. Reconstructed coronal a nd sagittal MPR images reviewed. All images stored on PACS. All CT scanners at this facility use dose modulation, iterative reconstruction, and/or weight based d osing when appropriate to reduce radiation dose to as low as reasonably achievable (ALARA). [facility]: Dose Right [facility]: CareDose [facility]: Dose Right [facility]: Teradose 4D [facility]: [employer] RADIATION DOSE: CT Rad equipment meets quality standard of care and radiation dose reduction techniq ues were employed. CTDIvol: 19.6 - 25.9 mGy. DLP: 3362 mGy-cm. . LIMITATIONS: None. FINDINGS: AXILLAE: No adenopathy. CHEST WALL: No masses. No subcutaneous air. 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 Subpleural nodule in the right middle lobe previously measured 9.2 mm has decreased in size. This measures approximately 5 mm on today's exam. No new nodules are identified. PLEURA: Calcified subpleural nodule is seen on series 2, image 43. This is unchanged. THYROID: No masses or significant asymmetry. HILAR AND MEDIASTINAL STRUCTURES: Mediastinal nodes are stable to slightly decreased in size. No sig nificant change in small hilar adenopathy. AORTA AND GREAT VESSELS: No aneurysm. No dissection. PULMONARY ARTERIES: Previously described pulmonary emboli have resolved. HEART: No pericardial effusion. HARDWARE AND LIFELINES: Sternotomy wires are in place along with Uzwplo-Y-Ydwk. BONES: No significant finding. OTHER: No other significant finding. IMPRESSION: Grossly stable chest with subpleural fibrosis. Previously described 9.2 mm subpleural n odule in the right middle lobe measures approximately 5 mm on today's exam. No new findings. COMPARISON: None. RADIATION DOSE: CT Rad equipment meets quality standard of care and radiation dose reduction techniq ues were employed. CTDIvol: 19.6 - 25.9 mGy. DLP: 3362 mGy-cm. mGy. TECHNIQUE: CT scan of the abdomen and pelvis performed with intravenous and oral contrast using laura darling scanning technique with dynamic intravenous contrast injection. Images reviewed with lung, soft tissue and bone windows. Reconstructed coronal and sagittal MPR images reviewed. Delayed images for evaluation of the urinary system also acquired and evaluated. All images stored on PACS. All CT scanners at this facility use dose modulation, iterative reconstruction, and/or weight based d osing when appropriate to reduce radiation dose to as low as reasonably achievable (ALARA). [facility]: Dose Right [facility]: [employer] [facility]: Dose Right [facility]: Teradose 4D [facility]: [employer] FINDINGS: LIVER: There is fatty infiltration of the liver. No focal mass lesions. SPLEEN: Normal size. No focal lesions. PANCREAS: No masses. No significant calcifications. No adjacent inflammation or peripancreatic flui d collections. Pancreatic duct not dilated. GALLBLADDER: No identified stones by CT criteria. No inflammatory changes to suggest cholecystitis. ADRENAL GLANDS: No significant masses or asymmetry. RIGHT KIDNEY AND URETER: No solid masses. No significant calcifications. Right-sided hydronephros is has increased. Recommend retrograde pyelogram for further evaluation. No definite neural stones. LEFT KIDNEY AND URETER: No solid masses. No significant calcifications. No hydronephrosis or hydr oureter. AORTA AND VESSELS: No aneurysm. No dissection. Renal arteries, SMA, celiac without stenosis. RETROPERITONEUM: Grossly stable retroperitoneal and periaortic lymph nodes. LARGE AND SMALL BOWEL: No dilatation. No masses. No wall thickening. APPENDIX: Normal. ABDOMINAL WALL: No hernia or masses. PERITONEAL CAVITY: No free air. No free fluid. No peritoneal implants or masses. PELVIS: Stable left inguinal adenopathy. Persistent stranding surrounding the left neurovascular bun dle. Prostate implant seeds are in place. BONES: Stable in appearance with mixed lytic and sclerotic changes in the right ilium. Sclerotic les ion in the body of L5 is again noted as well. OTHER: No other significant finding. IMPRESSION: 1. Increasing right-sided hydronephrosis. No definite stone. No obvious obstructing ex trinsic mass. Recommend retrograde pyelogram for further evaluation. 2. Stable periaortic and retroperitoneal adenopathy. 3. Hepatic steatosis. TECHNICAL DOCUMENTATION: JOB ID: [id number] Quality ID # 436: Final reports with documentation of one or more dose reduction techniques (e.g., Au tomated exposure control, adjustment of the mA and/or kV according to patient size, use of iterative reconstruction technique) 2010 [email or web address]- All Rights Reserved Reading location - IP/workstation name: [email or web address]
--- NOTE | 2020-05-11 10:27 | RADIOLOGY REPORT (SQ) ---
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 0 ml; Total Saline Delivered: 40.0 ml RENAL FUNCTION: Creatinine 0.7 COMPARISON: 02/25/2020 TECHNIQUE: CT scan of the chest performed using helical scanning technique with dynamic intravenous contrast injection. Images reviewed with lung, soft tissue and bone windows. Reconstructed coronal a nd sagittal MPR images reviewed. All images stored on PACS. All CT scanners at this facility use dose modulation, iterative reconstruction, and/or weight based d osing when appropriate to reduce radiation dose to as low as reasonably achievable (ALARA). [facility]: Dose Right [facility]: CareDose [facility]: Dose Right [facility]: Teradose 4D [facility]: [place] RADIATION DOSE: CT Rad equipment meets quality standard of care and radiation dose reduction techniq ues were employed. CTDIvol: 19.6 - 25.9 mGy. DLP: 3362 mGy-cm. . LIMITATIONS: None. FINDINGS: AXILLAE: No adenopathy. CHEST WALL: No masses. No subcutaneous air. 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 Subpleural nodule in the right middle lobe previously measured 9.2 mm has decreased in size. This measures approximately 5 mm on today's exam. No new nodules are identified. PLEURA: Calcified subpleural nodule is seen on series 2, image 43. This is unchanged. THYROID: No masses or significant asymmetry. HILAR AND MEDIASTINAL STRUCTURES: Mediastinal nodes are stable to slightly decreased in size. No sig nificant change in small hilar adenopathy. AORTA AND GREAT VESSELS: No aneurysm. No dissection. PULMONARY ARTERIES: Previously described pulmonary emboli have resolved. HEART: No pericardial effusion. HARDWARE AND LIFELINES: Sternotomy wires are in place along with [id number]. BONES: No significant finding. OTHER: No other significant finding. IMPRESSION: Grossly stable chest with subpleural fibrosis. Previously described 9.2 mm subpleural n odule in the right middle lobe measures approximately 5 mm on today's exam. No new findings. COMPARISON: None. RADIATION DOSE: CT Rad equipment meets quality standard of care and radiation dose reduction techniq ues were employed. CTDIvol: 19.6 - 25.9 mGy. DLP: 3362 mGy-cm. mGy. TECHNIQUE: CT scan of the abdomen and pelvis performed with intravenous and oral contrast using laura darling scanning technique with dynamic intravenous contrast injection. Images reviewed with lung, soft tissue and bone windows. Reconstructed coronal and sagittal MPR images reviewed. Delayed images for evaluation of the urinary system also acquired and evaluated. All images stored on PACS. All CT scanners at this facility use dose modulation, iterative reconstruction, and/or weight based d osing when appropriate to reduce radiation dose to as low as reasonably achievable (ALARA). [facility]: Dose Right [facility]: SureCare [facility]: Dose Right [facility]: Teradose 4D [facility]: [place] FINDINGS: LIVER: There is fatty infiltration of the liver. No focal mass lesions. SPLEEN: Normal size. No focal lesions. PANCREAS: No masses. No significant calcifications. No adjacent inflammation or peripancreatic flui d collections. Pancreatic duct not dilated. GALLBLADDER: No identified stones by CT criteria. No inflammatory changes to suggest cholecystitis. ADRENAL GLANDS: No significant masses or asymmetry. RIGHT KIDNEY AND URETER: No solid masses. No significant calcifications. Right-sided hydronephros is has increased. Recommend retrograde pyelogram for further evaluation. No definite neural stones. LEFT KIDNEY AND URETER: No solid masses. No significant calcifications. No hydronephrosis or hydr oureter. AORTA AND VESSELS: No aneurysm. No dissection. Renal arteries, SMA, celiac without stenosis. RETROPERITONEUM: Grossly stable retroperitoneal and periaortic lymph nodes. LARGE AND SMALL BOWEL: No dilatation. No masses. No wall thickening. APPENDIX: Normal. ABDOMINAL WALL: No hernia or masses. PERITONEAL CAVITY: No free air. No free fluid. No peritoneal implants or masses. PELVIS: Stable left inguinal adenopathy. Persistent stranding surrounding the left neurovascular bun dle. Prostate implant seeds are in place. BONES: Stable in appearance with mixed lytic and sclerotic changes in the right ilium. Sclerotic les ion in the body of L5 is again noted as well. OTHER: No other significant finding. IMPRESSION: 1. Increasing right-sided hydronephrosis. No definite stone. No obvious obstructing ex trinsic mass. Recommend retrograde pyelogram for further evaluation. 2. Stable periaortic and retroperitoneal adenopathy. 3. Hepatic steatosis. TECHNICAL DOCUMENTATION: JOB ID: [id number] Quality ID # [id number]: Final reports with documentation of one or more dose reduction techniques (e.g., Au tomated exposure control, adjustment of the mA and/or kV according to patient size, use of iterative reconstruction technique) 2010 [employer]- All Rights Reserved Reading location - IP/workstation name: [email or web address]
--- NOTE | 2020-05-11 13:54 | RADIOLOGY REPORT (SQ) ---
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 Prior bone scan dated 02/25/2020 RADIONUCLIDE AND DOSE: 21.7 millicuries Tc99m MDP. The route of agent administration: Intravenous. ADDITIONAL DRUGS AND DOSES: None. TECHNIQUE: Routine delayed images at 3 hour post radionuclide injection acquired of the bony skeleto n including anterior and posterior whole-body projections and additional focused images as needed. LIMITATIONS: None. FINDINGS: BONES: Previously mentioned increased uptake in the right SI joint is no longer noted. Ac tivity is grossly symmetric on today's exam. Mild increased uptake in the shoulders is consistent wi th degenerative disease. No abnormal uptake is appreciated in the cervical spine. KIDNEYS: Persistent right-sided hydronephrosis which has increased. OTHER: No other significant finding. IMPRESSION: No definite bony metastatic disease. Uptake in the right SI region is improved. COMMENT: Quality measure 147: Current bone scan is compared with any available plain radiographs, p rior bone scans, and CT/MRI. TECHNICAL DOCUMENTATION: JOB ID: [id number] 2010 [employer]- All Rights Reserved Reading location - IP/workstation name: [email or web address]
== END ==
LOC: RAD 09:24
PROVIDERS: ATTEND Physician Assistant Medical
DX: C61 Malignant neoplasm of prostate (principal); N13.30 Unspecified hydronephrosis; K76.0 Fatty (change of) liver, not elsewhere classified
CPT/HCPCS: 82565; 78306; 71260; 74177; A9503; Q9969